=== PATIENT | female | born 1985 | race American Indian/Alaskan Native ===

== ENCOUNTER 2018-08-22 19:38 | Emergency (ER) | payer OTHER ==
[2018-08-22 20:14] VITALS: BP 146/111
--- NOTE | 2018-08-22 21:08 | Emergency Department Report ---
ED ENT HPI - General Chief complaint: Dental/Oral Stated complaint: TOOTHACHE Time Seen by Provider: 08/22/18 21:04 Source: patient Mode of arrival: Ambulatory Limitations: No Limitations - History of Present Illness Initial comments: 33 y/o female for 3 day history of dental pain. Taking Mortin and Tylenol. Admits to having a bad tooth in mouth. Pain in upper tooth. NKDA. PMH None. MD complaint: tooth pain -: days(s) (3) Location: tooth # Severity scale (0 -10): 10 Quality: aching, sharp Consistency: constant Improves with: none Worsens with: none Context- Dental: history of dental caries - Related Data Previous Rx's Medication Instructions Recorded Last Taken Type Amoxicillin [Trimox CAP] 500 mg PO Q8H #30 capsule 08/22/18 Unknown Rx Ibuprofen [Motrin 800 MG tab] 800 mg PO Q8HR PRN #30 tablet 08/22/18 Unknown Rx Allergies Allergy/AdvReac Type Severity Reaction Status Date / Time No Known Allergies Allergy Unverified 08/22/18 19:41 ED Dental HPI - General Chief complaint: Dental/Oral Stated complaint: TOOTHACHE Time Seen by Provider: 08/22/18 21:04 Source: patient Mode of arrival: Ambulatory Limitations: No Limitations - Related Data Previous Rx's Medication Instructions Recorded Last Taken Type Amoxicillin [Trimox CAP] 500 mg PO Q8H #30 capsule 08/22/18 Unknown Rx Ibuprofen [Motrin 800 MG tab] 800 mg PO Q8HR PRN #30 tablet 08/22/18 Unknown Rx Allergies Allergy/AdvReac Type Severity Reaction Status Date / Time No Known Allergies Allergy Unverified 08/22/18 19:41 ED Review of Systems ROS: Stated complaint: TOOTHACHE Other details as noted in HPI Comment: All other systems reviewed and negative Constitutional: no symptoms reported ENT: dental pain ED Past Medical Hx - Medications Home Medications: Home Medications Medication Instructions Recorded Confirmed Last Taken Type Amoxicillin [Trimox CAP] 500 mg PO Q8H #30 capsule 08/22/18 Unknown Rx Ibuprofen [Motrin 800 MG tab] 800 mg PO Q8HR PRN #30 tablet 08/22/18 Unknown Rx ED Physical Exam - General Limitations: No Limitations General appearance: alert - Head Head exam: Present: atraumatic, normocephalic - Eye Eye exam: Present: normal appearance, EOMI - ENT ENT exam: Present: mucous membranes moist - Expanded ENT Exam Expanded Teeth exam: Present: dental tenderness # (1) ED Course Vital Signs 08/22/18 20:12 Temperature 98.4 F Pulse Rate 64 Respiratory 20 Rate Blood Pressure 146/111 O2 Sat by Pulse 97 Oximetry Critical care attestation.: If time is entered above; I have spent that time in minutes in the direct care of this critically ill patient, excluding procedure time. ED Disposition Clinical Impression: Pain, dental Disposition: - TO HOME OR SELFCARE Is pt being admited?: No Does the pt Need Aspirin: No Condition: Stable Instructions: Toothache (ED) Additional Instructions: complete medication as prescribed . Follow up with a Dentist. Increase water intake. Prescriptions: Ibuprofen [Motrin 800 MG tab] 800 mg PO Q8HR PRN #30 tablet PRN Reason: Pain , Severe (7-10) Amoxicillin [Trimox CAP] 500 mg PO Q8H #30 capsule Referrals: [facility] [Outside] - 3-5 Days [facility] [Outside] - 3-5 Days [facility] [Outside] - 3-5 Days
== END 2018-08-22 21:28 | disposition home or self-care (01) ==
LOC: ED 19:38
DX: K08.89 Other specified disorders of teeth and supporting structures (principal)
CPT/HCPCS: 99282

== ENCOUNTER 2021-02-15 10:27 | Emergency (ER) | payer OTHER ==
[2021-02-15 10:33] VITALS: BP 168/86
[2021-02-15] MEDS ORDERED: SODIUM CHLORIDE 0.9% 1000 ML 1,000 ML IV ONE (10:41)
[2021-02-15] MEDS ORDERED: diphenhydrAMINE 50 MG/ML VIAL IV ONE (10:41)
[2021-02-15] MEDS ORDERED: METOCLOPRAMIDE 10 MG/2 ML INJ IV ONE (10:41)
--- NOTE | 2021-02-15 12:35 | Cat Scan Report ---
CT head/brain wo con INDICATION: headache without improved with OTC medications. TECHNIQUE: Routine CT head without contrast. All CT scans at this location are performed using CT dos e reduction for ALARA by means of automated exposure control. COMPARISON: None. FINDINGS: BRAIN / INTRACRANIAL CONTENTS: No acute hemorrhage, mass effect, midline shift, or hydrocephalus. No appreciable acute large territorial or lacunar infarct. No chronic infarct or focal atrophy. Normal b rain volume and ventricular/sulcal size for age. ORBITS: No significant abnormality of visualized orbits. SINUSES / MASTOIDS: No significant abnormality of visualized sinuses and mastoid air cells. ADDITIONAL FINDINGS: None. IMPRESSION: 1. No acute intracranial abnormality. Signer Name: Ovidio Farfan MD Signed: 02/15/2021 11:47 AM Workstation Name: [id number]
--- NOTE | 2021-02-15 13:05 | Emergency Department Report ---
ED Headache HPI - General Chief Complaint: Headache Stated Complaint: BAD HEADACHE Time Seen by Provider: 02/15/21 10:38 Source: patient, RN notes reviewed Exam Limitations: no limitations - History of Present Illness Initial Comments: This is a 35-year-old female nontoxic, well nourished in appearance, no acute signs of distress presents to the ED with c/o of acute on chronic headache. Patient stated symptoms are relieved with taking vezi-ivm-[id number] medication. Patient stated that this headache is slightly different from typical migraine headaches due to not being relief from adso-thq-wnopljs medication patient describes headache as diffuse with level of 8 out of 10. Patient denies thunderclap headache. Patient denies any radiation of pain. Patient denies any head trauma. Patient denies any visual changes. Patient denies worse headache. Patient stated that darkness makes headache better and bright lights make the headache worse. Patient denies any numbness, tingling, fever, chills, nausea, vomiting, chest pain, shortness of breath, stiff neck. Patient denies facial drooping or one sided weakness. Patient denies any radiation of pain. Patient denies any allergies. Past medical history includes migraine headaches. Timing/Duration: episodic Quality: achy Recent Head Trauma: occasional headaches Associated Symptoms: denies symptoms. denies: confusion, fatigue, facial pain, fever/chills, flushing, loss of consciousness, nausea/vomiting, nasal co ngestion, nasal drainage, numbness in legs/feet, rash, seizures, sinus infection, stiff neck, vision changes, weakness Allergies/Adverse Reactions: Allergies No Known Allergies Allergy (Verified 02/15/21 10:31) Home Medications: Ambulatory Orders Amoxicillin [Trimox CAP] 500 mg PO Q8H #30 capsule 08/22/18 Ibuprofen [Motrin 800 MG tab] 800 mg PO Q8HR PRN #30 tablet 08/22/18 Butalb/Acetaminophen/Caffeine [Fioricet 50-300-40 mg CAP] 1 cap PO Q8HR PRN #12 cap 02/15/21 ED Review of Systems ROS: Stated complaint: BAD HEADACHE Other details as noted in HPI Comment: All other systems reviewed and negative Constitutional: denies: chills, fever Eyes: denies: eye pain, eye discharge, vision change ENT: denies: ear pain, throat pain Respiratory: denies: cough, shortness of breath, wheezing Cardiovascular: denies: chest pain, palpitations Endocrine: no symptoms reported Gastrointestinal: denies: abdominal pain, nausea, diarrhea Genitourinary: denies: urgency, dysuria, discharge Musculoskeletal: denies: back pain, joint swelling, arthralgia Skin: denies: rash, lesions Neurological: headache. denies: weakness, paresthesias Psychiatric: denies: anxiety, depression Hematological/Lymphatic: denies: easy bleeding, easy bruising ED Past Medical Hx - Surgical History Additional Surgical History: C-sect x1 - Social History Smoking Status: Never Smoker Substance Use Type: None - Medications Home Medications: Home Medications Medication Instructions Recorded Confirmed Last Taken Type Amoxicillin [Trimox CAP] 500 mg PO Q8H #30 capsule 08/22/18 Unknown Rx Ibuprofen [Motrin 800 MG tab] 800 mg PO Q8HR PRN #30 tablet 08/22/18 Unknown Rx Butalb/Acetaminophen/Caffeine 1 cap PO Q8HR PRN #12 cap 02/15/21 Unknown Rx [Fioricet 50-300-40 mg CAP] ED Physical Exam - General Limitations: No Limitations General appearance: alert, in no apparent distress - Head Head exam: Present: atraumatic, normocephalic - Eye Eye exam: Present: normal appearance, PERRL, EOMI - ENT ENT exam: Present: normal exam, normal orophraynx - Neck Neck exam: Present: normal inspection, full ROM. Absent: tenderness, meningismus, lymphadenopathy - Respiratory Respiratory exam: Absent: respiratory distress - Cardiovascular Cardiovascular Exam: Present: regular rate - Extremities Exam Extremities exam: Present: normal inspection, full ROM, normal capillary refill. Absent: tenderness - Back Exam Back exam: Present: normal inspection, full ROM. Absent: tenderness, CVA tenderness (R), CVA tenderness (L), muscle spasm, paraspinal tenderness, vertebral tenderness, rash noted - Neurological Exam Neurological exam: Present: alert, oriented X3, normal gait - Expanded Neurological Exam Expanded Patient oriented to: Present: person, place, time Cranial nerves: EOM's Intact: Normal, Facial Sensation: Normal Cerebellar function: Finger to Nose: Normal Upper motor neuron: Pronator Drift: Normal, Sensory Extinction: Normal Motor strength exam: RUE: 5, LUE: 5, RLE: 5, LLE: 5 Best Eye Response ([place]): (4) open spontaneously Best Motor Response ([place]): (6) obeys commands Best Verbal Response ([place]): (5) oriented Sam Total: 15 - Psychiatric Psychiatric exam: Present: normal affect, normal mood - Skin Skin exam: Present: warm, dry, intact, normal color. Absent: rash ED Course Vital Signs 02/15/21 02/15/21 10:31 10:32 Temperature 98.7 F Pulse Rate 83 Respiratory 16 Rate Blood Pressure 168/86 [Right] O2 Sat by Pulse 96 Oximetry - Reevaluation(s) Reevaluation #1: 02/15/21 13:11 Patient is speaking in full sentences with no signs of distress noted. ED Medical Decision Making - Radiology Data CT head/brain wo con INDICATION: headache without improved with OTC medications. TECHNIQUE: Routine CT head without contrast. All CT scans at this location are performed using CT dose reduction for ALARA by means of automated exposure control. COMPARISON: None. FINDINGS: BRAIN / INTRACRANIAL CONTENTS: No acute hemorrhage, mass effect, midline shift, or hydrocephalus. No appreciable acute large territorial or lacunar infarct. No chronic infarct or focal atrophy. Normal brain volume and ventricular/sulcal size for age. ORBITS: No significant abnormality of visualized orbits. SINUSES / MASTOIDS: No significant abnormality of visualized sinuses and mastoid air cells. ADDITIONAL FINDINGS: None. IMPRESSION: 1. No acute intracranial abnormality. Signer Name: Ovidio Farfan MD Signed: 02/15/2021 10:47 AM Workstation Name: [id number] - Medical Decision Making This is a 35-year-old female that presents with headache. Patient is stable and was examined by me. Patient is neurologically stable. Due to symptoms of headache that is not relieved with tmtk-[id number]-csfcoww medication, CT scan has been performed and dictated by radiologist within normal limits. Patient is notified of the results with no questions noted by the patient. There is no stiff neck or neck pain. Vital signs are stable. Patient is afebrile. Patient received Benadryl, Reglan, and 1 L of normal saline which the patient stated that headache has subsided and resolved. Patient was instructed not to operate any machinery after discharged due to drowsiness of Benadryl. Patient stated th at a family member will drive patient home. Patient is discharged with Fioricet. Patient was referred to Follow-up with a primary care/neurologist doctor in 3-5 days or if symptoms worsen and continue return to emergency room as soon as possible. At time of discharge, the patient does not seem toxic or ill in appearance. No acute signs of distress noted. Patient agrees to discharge treatment plan of care. No further questions noted by the patient. Critical care attestation.: If time is entered above; I have spent that time in minutes in the direct care of this critically ill patient, excluding procedure time. ED Disposition Clinical Impression: Headache Qualifiers: Headache type: unspecified Headache chronicity pattern: episodic headache Intractability: not intractable Qualified Code(s): R51.9 - Headache, unspecified Disposition: 01 HOME / SELF CARE / HOMELESS Is pt being admited?: No Does the pt Need Aspirin: No Condition: Stable Instructions: Acetaminophen; Butalbital; Caffeine tablets or capsules Additional Instructions: Follow-up with a primary care doctor in 3-5 days or if symptoms worsen and continue return to emergency room as soon as possible. Prescriptions: Butalb/Acetaminophen/Caffeine [Fioricet 50-300-40 mg CAP] 1 cap PO Q8HR PRN #12 cap PRN Reason: Headache Referrals: PRIMARY MD JOHNNY [Referring] - 3-5 Days OSMEL JEAN MD [Staff Physician] - 3-5 Days Forms: Work/School Release Form(ED) Time of Disposition: 13:14
== END 2021-02-15 13:39 | disposition home or self-care (01) ==
LOC: ED 10:27
DX: R51.9 Headache, unspecified (principal); G89.29 Other chronic pain; Z98.890 Other specified postprocedural states
CPT/HCPCS: 70450; 96361; 96374; 96375; 99283; J1200; J2765; J7030

== ENCOUNTER 2021-07-11 14:14 | Inpatient (IN) | payer OTHER ==
[2021-07-11] MEDS ORDERED: ACETAMINOPHEN 325 MG TAB PO PRN (17:07)
[2021-07-11] MEDS ORDERED: ONDANSETRON 4 MG/2 ML INJ IV PRN (17:07)
[2021-07-11] MEDS ORDERED: diphenhydrAMINE 25 MG CAP PO PRN (17:07)
[2021-07-11] MEDS ORDERED: DOCUSATE SODIUM 100 MG CAP PO PRN (17:07)
[2021-07-11] MEDS ORDERED: SODIUM CHLORIDE NASAL SPRAY 44ML NS PRN (17:07)
[2021-07-11] MEDS ORDERED: LACTATED RINGERS 1,000 ML IV SCH ×2 (18:00→18:30)
[2021-07-11] MEDS ORDERED: hydrALAZINE 20 MG/1 ML INJ ONE (18:01)
[2021-07-11] MEDS ORDERED: hydrALAZINE 20 MG/1 ML INJ IV PRN (18:24)
--- NOTE | 2021-07-11 18:50 | Event Note ---
Date: 07/11/21 Pt was sent from [facility] for BP control, 24 hour urine collection, glucose monitoring and betamethasone administration. Hydralazine ordered around 1824pm. I called to follow up on BP and RN reports difficult to obtain IV access. Plan to consult anesthesia for IV access once available once ongoing section is completed. PO labetalol ordered to be administered now. Continue to monitor clinically. Plan to begin magnesium sulfate once IV access established. Closely monitor clinical status.
[2021-07-11] MEDS: BETAMET ACET/BETAMET NA PH 6 MG/ML INJ 5 ML MDV IM SCH (18:59)
[2021-07-11 19:51] LABS: Basophils % (Auto) 0.2 % (0.0-1.8); Eosinophils # (Auto) 0.1 K/mm3 (0.0-0.4); Eosinophils % (Auto) 0.6 % (0.0-4.3); Hematocrit 36.5 % (30.3-42.9); Hemoglobin 11.9 gm/dl (10.1-14.3); Lymphocytes # (Auto) 1.5 K/mm3 (1.2-5.4); Lymphocytes % (Auto) 15.3 % (13.4-35.0); Mean Corpuscular HGB Conc 33 % (30-34); Mean Corpuscular Volume 88 fl (79-97); Monocytes # (Auto) 0.5 K/mm3 (0.0-0.8); Monocytes % (Auto) 4.6 % (0.0-7.3); Platelet Count 313 K/mm3 (140-440); Red Blood Count 4.14 M/mm3 (3.65-5.03); Red Cell Distribution Width 15.3 % (13.2-15.2)
[2021-07-11] MEDS ORDERED: MAGNESIUM SULFATE 4 GM/100 ML BAG IV ONE (20:00)
[2021-07-11] MEDS ORDERED: CALCIUM GLUCONATE 1000 MG/10 ML INJ IV ONE (20:00)
[2021-07-11 20:05] LABS: Alanine Aminotransferase 10 units/L (7-56); Uric Acid 4.1 mg/dL (3.5-7.6)
[2021-07-11] MEDS: MAGNESIUM SULFATE 40GM/1000ML 40 GM/1,000 ML BAG IV SCH ×2 (20:50→21:02)
--- NOTE | 2021-07-11 21:36 | History and Physical Report ---
History of Present Illness Date of admission: 07/11/21 14:14 Chief complaint: sent from [facility] office for admission History of present illness: Pt is a 36 year old female FARIHA 08/09/21 at 35w6d presents for collection of 24 hour urine, serial BP measurements, betamethasone course, glucose monitoring and diabetic teaching from [facility] appt earlier today. She reports movement, and denies contractions, vaginal bleeding or leakage of fluid. She has had care at [facility] since 15 wks with comanagement by [facility] secondary to morbid obesity, gestational diabetes, h/o preeclampsia, gestational hypertension on labetalol 100 mg BID, genital herpes without lesion or prodrome, previous x 1, h/o 6 SVDs, trichomonas treated with negative test of cure. Her GBS status is unknown. The patient had an ultrasound today revealing a cephalic fetus, posterior grade 1 placenta, ROBERTO 19.37 cm, BPP 8/8 Past History Past Medical History: hypertension (gestational hypertension ), diabetes (gestational diabetes ), other (morbid obesity ) Past Surgical History: section, D[employer]C [employer] History: herpes Family/Genetic History: none Social history: no significant social history - Obstetrical History Expected Date of Delivery: 08/09/21 Actual Gestation: 35 Week(s) 6 Day(s) : 11 Para: 7 Hx # Term Pregnancies: 7 Number of Pregnancies: 0 Spontaneous Abortions: 0 Induced : 3 Number of Living Children: 7 Medications and Allergies Allergies Allergy/AdvReac Type Severity Reaction Status Date / Time No Known Allergies Allergy Verified 02/15/21 10:31 Home Medications Medication Instructions Recorded Confirmed Last Taken Type Amoxicillin [Trimox CAP] 500 mg PO Q8H #30 capsule 08/22/18 Unknown Rx Ibuprofen [Motrin 800 MG tab] 800 mg PO Q8HR PRN #30 tablet 08/22/18 Unknown Rx Butalb/Acetaminophen/Caffeine 1 cap PO Q8HR PRN #12 cap 02/15/21 Unknown Rx [Fioricet 50-300-40 mg CAP] Active Meds: Active Medications Acetaminophen (Acetaminophen 325 Mg Tab) 650 mg PO Q4H PRN PRN Reason: Pain MILD(1-3)/Fever >100.5/ENCINAS Betamethasone Acet/Betameth SodPhos (Betamet Acet/Betamet Na Ph 6 Mg/Ml Inj 5 Ml Mdv) 12 mg IM Q24H MORENO Stop: 07/12/21 18:01 Last Admin: 07/11/21 18:59 Dose: 12 mg Diphenhydramine HCl (Diphenhydramine 25 Mg Cap) 25 mg PO Q6H PRN PRN Reason: Itching Docusate Sodium (Docusate Sodium 100 Mg Cap) 100 mg PO Q12H PRN PRN Reason: Constipation Hydralazine HCl (Hydralazine 20 Mg/1 Ml Inj) 5 mg IV Q30MIN PRN PRN Reason: Hypertension Last Admin: 07/11/21 18:58 Dose: 5 mg Lactated Ringer's (Lactated Ringers) 1,000 mls @ 75 mls/hr IV DIRECT MORENO Last Admin: 07/11/21 19:59 Dose: 75 mls/hr Lactated Ringer's (Lactated Ringers) 1,000 mls @ 125 mls/hr IV DIRECT MORENO Magnesium Sulfate (Magnesium Sulfate 40gm/1000ml) 40 gm in 1,000 mls @ 50 mls/hr IV DIRECT MORENO Last Admin: 07/11/21 21:02 Dose: 2 gm/hr, 50 mls/hr Labetalol HCl (Labetalol 200 Mg Tab) 200 mg PO BID MORENO Last Admin: 07/11/21 18:59 Dose: 200 mg Multivitamins/Iron/Calcium ( [id number] Fumarate-Folic Acid Vit Tab) 1 each PO QDAY [facility] Ondansetron HCl (Ondansetron 4 Mg/2 Ml Inj) 4 mg IV Q6H PRN PRN Reason: Nausea And Vomiting Sodium Chloride (Sodium Chloride Nasal [place] 44ml) 2 spray NS Q4H PRN PRN Reason: Congestion Review of Systems All systems: negative - Vital Signs Vital signs: Vital Signs Pulse Pulse Ox 116 H 97 07/11/21 14:59 07/11/21 14:59 Temp Pulse Resp BP Pulse Ox 99.2 F 107 H 16 137/75 96 07/11/21 15:33 07/11/21 21:27 07/11/21 15:33 07/11/21 21:27 07/11/21 21:27 - Physical Exam Breasts: Positive: deferred Abdomen: Positive: soft (obese, gravid ) Uterus: Positive: enlarged (gravid) - Obstetrical FHR: auscultation normal Uterine Contraction Monitor Mode: External Uterine Contraction Pattern: Irregular Uterine Tone Measurement Phase: Resting Results Result Diagrams: 07/11/21 18:25 07/11/21 18:25 Abnormal lab results 07/11/21 Range/Units 18:25 RDW 15.3 H (13.2-15.2) % Seg Neutrophils % 79.3 H (40.0-70.0) % Seg Neutrophils # 7.9 H (1.8-7.7) K/mm3 All other labs normal. Assessment and Plan A: IUP at 35w6d Gestational Hypertension on Labetalol 100 mg BID Gestational Diabetes Morbid Obesity Previous x 1 Grandmultiparity H/o preeclampsia in prior Genital Herpes Trichomonas treated with negative test of cure GBS unknown p: Admit to antepartum service Serial BPs with change in antihypertensive regimen PRN Accuchecks- fasting and 2 hour postprandials Betamethasone series PIH panel 24 hour urine collection Continue to monitor clinical status
[2021-07-11] MEDS ORDERED: INSULIN REGULAR, HUMAN 100 UNITS/1 ML SUB-Q PRN (21:47)
[2021-07-11] MEDS ORDERED: DEXTROSE 10% *Hypoglycemia IV PRN (21:51)
[2021-07-12 09:09] LABS: Mucus,Urine FEW /HPF
[2021-07-12 09:47] LABS: Bilirubin,Urine Negative (Negative); Color,Urine Straw (Yellow)
[2021-07-12 09:48] LABS: Blood,Urine Trace (Negative); Protein,Urine <15 mg/dL mg/dL (Negative); Urobilinogen,Urine < 2.0 mg/dL (<2.0)
[2021-07-12] MEDS: valACYclovir 500 MG TAB PO SCH (10:06)
[2021-07-12] MEDS: PRENATAL VIT27-FE FUMARATE-FOLIC ACID VIT TAB PO SCH (10:07)
--- NOTE | 2021-07-12 13:23 | Progress Note ---
Assessment and Plan - Patient Problems (1) induced hypertension Current Visit: Yes Status: Acute Plan to address problem: Complete betamethasone therapy Completion of 24-hour urine pending this afternoon (2) Diabetes mellitus affecting Current Visit: Yes Status: Acute Subjective - Subjective Date of service: 07/12/21 Interval history: The patient is currently without complaints. She is refused Covid testing. The importance of knowing her Covid status was explained to the patient. The patient is undergoing treatment with betamethasone and magnesium sulfate therapy. Patient demonstrating normotensive blood pressures on bedrest. Currently awaiting completion of 24-hour urine collection Patient reports: no new complaints Objective - Vital Signs Vital Signs: Vital Signs - 12hr 07/12/21 07/12/21 07/12/21 01:22 01:27 01:32 Temperature Pulse Rate 117 H 115 H 113 H Respiratory Rate Blood Pressure 143/84 Blood Pressure [Right] O2 Sat by Pulse 96 97 96 Oximetry O2 Sat by Pulse Oximetry [ Bilateral Throughout] 07/12/21 07/12/21 07/12/21 01:37 01:42 01:47 Temperature Pulse Rate 111 H 112 H 114 H Respiratory Rate Blood Pressure Blood Pressure [Right] O2 Sat by Pulse 96 97 97 Oximetry O2 Sat by Pulse Oximetry [ Bilateral Throughout] 07/12/21 07/12/21 07/12/21 01:52 01:57 02:02 Temperature Pulse Rate 106 H 113 H 111 H Respiratory Rate Blood Pressure 145/83 Blood Pressure [Right] O2 Sat by Pulse 97 97 96 Oximetry O2 Sat by Pulse Oximetry [ Bilateral Throughout] 07/12/21 07/12/21 07/12/21 02:07 02:12 02:17 Temperature Pulse Rate 111 H 111 H 109 H Respiratory Rate Blood Pressure Blood Pressure [Right] O2 Sat by Pulse 97 95 96 Oximetry O2 Sat by Pulse Oximetry [ Bilateral Throughout] 07/12/21 07/12/21 07/12/21 02:21 02:22 02:26 Temperature Pulse Rate 112 H 107 H 105 H Respiratory Rate Blood Pressure Blood Pressure [Right] O2 Sat by Pulse 94 95 94 Oximetry O2 Sat by Pulse Oximetry [ Bilateral Throughout] 07/12/21 07/12/21 07/12/21 02:27 02:32 02:37 Temperature Pulse Rate 122 H 109 H 114 H Respiratory Rate Blood Pressure 132/68 Blood Pressure [Right] O2 Sat by Pulse 97 97 96 Oximetry O2 Sat by Pulse Oximetry [ Bilateral Throughout] 07/12/21 07/12/21 07/12/21 02:42 02:47 02:52 Temperature Pulse Rate 111 H 111 H 109 H Respiratory Rate Blood Pressure Blood Pressure [Right] O2 Sat by Pulse 96 97 97 Oximetry O2 Sat by Pulse Oximetry [ Bilateral Throughout] 07/12/21 07/12/21 07/12/21 02:57 02:58 03:02 Temperature Pulse Rate 107 H 110 H 112 H Respiratory Rate Blood Pressure 136/75 Blood Pressure [Right] O2 Sat by Pulse 98 97 Oximetry O2 Sat by Pulse Oximetry [ Bilateral Throughout] 07/12/21 07/12/21 07/12/21 03:07 03:12 03:17 Temperature Pulse Rate 108 H 109 H 108 H Respiratory Rate Blood Pressure Blood Pressure [Right] O2 Sat by Pulse 98 98 97 Oximetry O2 Sat by Pulse Oximetry [ Bilateral Throughout] 07/12/21 07/12/21 07/12/21 03:22 03:27 03:32 Temperature Pulse Rate 104 H 113 H 107 H Respiratory Rate Blood Pressure 138/74 Blood Pressure [Right] O2 Sat by Pulse 97 97 97 Oximetry O2 Sat by Pulse Oximetry [ Bilateral Throughout] 07/12/21 07/12/21 07/12/21 03:37 03:42 03:47 Temperature Pulse Rate 105 H 103 H 112 H Respiratory Rate Blood Pressure Blood Pressure [Right] O2 Sat by Pulse 97 97 98 Oximetry O2 Sat by Pulse Oximetry [ Bilateral Throughout] 07/12/21 07/12/21 07/12/21 03:52 03:57 04:02 Temperature Pulse Rate 111 H 109 H 108 H Respiratory Rate Blood Pressure 128/65 Blood Pressure [Right] O2 Sat by Pulse 97 97 97 Oximetry O2 Sat by Pulse Oximetry [ Bilateral Throughout] 07/12/21 07/12/21 07/12/21 04:07 04:12 04:17 Temperature Pulse Rate 105 H 110 H 101 H Respiratory Rate Blood Pressure Blood Pressure [Right] O2 Sat by Pulse 97 96 97 Oximetry O2 Sat by Pulse Oximetry [ Bilateral Throughout] 07/12/21 07/12/21 07/12/21 04:22 04:27 04:32 Temperature Pulse Rate 102 H 106 H 106 H Respiratory Rate Blood Pressure 135/77 Blood Pressure [Right] O2 Sat by Pulse 96 96 96 Oximetry O2 Sat by Pulse Oximetry [ Bilateral Throughout] 07/12/21 07/12/21 07/12/21 04:37 04:39 04:42 Temperature Pulse Rate 103 H 103 H 100 H Respiratory Rate Blood Pressure Blood Pressure [Right] O2 Sat by Pulse 96 94 95 Oximetry O2 Sat by Pulse Oximetry [ Bilateral Throughout] 07/12/21 07/12/21 07/12/21 04:46 04:47 04:52 Temperature Pulse Rate 105 H 102 H 102 H Respiratory Rate Blood Pressure Blood Pressure [Right] O2 Sat by Pulse 93 95 95 Oximetry O2 Sat by Pulse Oximetry [ Bilateral Throughout] 07/12/21 07/12/21 07/12/21 04:56 04:57 05:02 Temperature Pulse Rate 100 H 107 H 111 H Respiratory Rate Blood Pressure 133/72 Blood Pressure [Right] O2 Sat by Pulse 94 93 96 Oximetry O2 Sat by Pulse Oximetry [ Bilateral Throughout] 07/12/21 07/12/21 07/12/21 05:07 05:12 05:17 Temperature Pulse Rate 107 H 119 H 107 H Respiratory Rate Blood Pressure Blood Pressure [Right] O2 Sat by Pulse 96 97 98 Oximetry O2 Sat by Pulse Oximetry [ Bilateral Throughout] 07/12/21 07/12/21 07/12/21 05:22 05:27 05:28 Temperature Pulse Rate 107 H 102 H 111 H Respiratory Rate Blood Pressure 132/74 Blood Pressure [Right] O2 Sat by Pulse 97 98 Oximetry O2 Sat by Pulse Oximetry [ Bilateral Throughout] 07/12/21 07/12/21 07/12/21 05:32 05:37 05:41 Temperature 98.8 F Pulse Rate 108 H 105 H Respiratory Rate Blood Pressure Blood Pressure [Right] O2 Sat by Pulse 96 98 Oximetry O2 Sat by Pulse Oximetry [ Bilateral Throughout] 07/12/21 07/12/21 07/12/21 05:42 05:47 05:52 Temperature Pulse Rate 100 H 103 H 105 H Respiratory Rate Blood Pressure Blood Pressure [Right] O2 Sat by Pulse 97 97 97 Oximetry O2 Sat by Pulse Oximetry [ Bilateral Throughout] 07/12/21 07/12/21 07/12/21 05:57 06:02 06:07 Temperature Pulse Rate 101 H 109 H 100 H Respiratory Rate Blood Pressure 137/80 Blood Pressure [Right] O2 Sat by Pulse 97 97 97 Oximetry O2 Sat by Pulse Oximetry [ Bilateral Throughout] 07/12/21 07/12/21 07/12/21 06:12 06:17 06:22 Temperature Pulse Rate 105 H 103 H 102 H Respiratory Rate Blood Pressure Blood Pressure [Right] O2 Sat by Pulse 96 96 94 Oximetry O2 Sat by Pulse Oximetry [ Bilateral Throughout] 07/12/21 07/12/21 07/12/21 06:27 06:29 06:32 Temperature Pulse Rate 104 H 108 H 108 H Respiratory Rate Blood Pressure 125/68 Blood Pressure [Right] O2 Sat by Pulse 96 97 Oximetry O2 Sat by Pulse Oximetry [ Bilateral Throughout] 07/12/21 07/12/21 07/12/21 06:37 06:42 06:47 Temperature Pulse Rate 108 H 111 H 118 H Respiratory Rate Blood Pressure Blood Pressure [Right] O2 Sat by Pulse 98 98 97 Oximetry O2 Sat by Pulse Oximetry [ Bilateral Throughout] 07/12/21 07/12/21 07/12/21 06:52 06:57 07:01 Temperature Pulse Rate 111 H 107 H 105 H Respiratory Rate Blood Pressure 139/81 Blood Pressure [Right] O2 Sat by Pulse 96 98 94 Oximetry O2 Sat by Pulse Oximetry [ Bilateral Throughout] 07/12/21 07/12/21 07/12/21 07:02 07:07 07:12 Temperature Pulse Rate 105 H 104 H 104 H Respiratory Rate Blood Pressure Blood Pressure [Right] O2 Sat by Pulse 95 95 94 Oximetry O2 Sat by Pulse Oximetry [ Bilateral Throughout] 07/12/21 07/12/21 07/12/21 07:17 07:22 07:26 Temperature Pulse Rate 101 H 111 H 108 H Respiratory Rate Blood Pressure Blood Pressure [Right] O2 Sat by Pulse 95 94 94 Oximetry O2 Sat by Pulse Oximetry [ Bilateral Throughout] 07/12/21 07/12/21 07/12/21 07:27 07:31 07:32 Temperature Pulse Rate 102 H 99 H 106 H Respiratory Rate Blood Pressure Blood Pressure [Right] O2 Sat by Pulse 97 93 95 Oximetry O2 Sat by Pulse Oximetry [ Bilateral Throughout] 07/12/21 07/12/21 07/12/21 07:36 07:37 07:42 Temperature Pulse Rate 100 H 100 H 100 H Respiratory Rate Blood Pressure Blood Pressure [Right] O2 Sat by Pulse 94 94 93 Oximetry O2 Sat by Pulse Oximetry [ Bilateral Throughout] 07/12/21 07/12/21 07/12/21 07:44 07:47 07:49 Temperature Pulse Rate 100 H 100 H 100 H Respiratory Rate Blood Pressure Blood Pressure [Right] O2 Sat by Pulse 94 93 94 Oximetry O2 Sat by Pulse Oximetry [ Bilateral Throughout] 07/12/21 07/12/21 07/12/21 07:52 07:57 08:02 Temperature Pulse Rate 113 H 107 H 106 H Respiratory Rate Blood Pressure 135/79 Blood Pressure [Right] O2 Sat by Pulse 98 96 95 Oximetry O2 Sat by Pulse Oximetry [ Bilateral Throughout] 07/12/21 07/12/21 07/12/21 08:07 08:12 08:17 Temperature Pulse Rate 112 H 117 H 122 H Respiratory Rate Blood Pressure Blood Pressure [Right] O2 Sat by Pulse 97 97 96 Oximetry O2 Sat by Pulse Oximetry [ Bilateral Throughout] 07/12/21 07/12/21 07/12/21 08:20 08:21 08:22 Temperature 98.0 F Pulse Rate 106 H 110 H 108 H Respiratory 22 Rate Blood Pressure 128/71 Blood Pressure 128/71 [Right] O2 Sat by Pulse 96 97 Oximetry O2 Sat by Pulse Oximetry [ Bilateral Throughout] 07/12/21 07/12/21 07/12/21 08:24 08:27 08:32 Temperature Pulse Rate 108 H 107 H Respiratory Rate Blood Pressure 131/72 Blood Pressure [Right] O2 Sat by Pulse 95 95 Oximetry O2 Sat by Pulse 96 Oximetry [ Bilateral Throughout] 07/12/21 07/12/21 07/12/21 08:37 08:42 08:47 Temperature Pulse Rate 112 H 114 H 110 H Respiratory Rate Blood Pressure Blood Pressure [Right] O2 Sat by Pulse 97 97 97 Oximetry O2 Sat by Pulse Oximetry [ Bilateral Throughout] 07/12/21 07/12/21 07/12/21 08:52 08:57 08:58 Temperature Pulse Rate 106 H 104 H 105 H Respiratory Rate Blood Pressure 117/65 Blood Pressure [Right] O2 Sat by Pulse 96 96 Oximetry O2 Sat by Pulse Oximetry [ Bilateral Throughout] 07/12/21 07/12/21 07/12/21 09:02 09:07 09:12 Temperature Pulse Rate 120 H 120 H 110 H Respiratory Rate Blood Pressure Blood Pressure [Right] O2 Sat by Pulse 97 98 96 Oximetry O2 Sat by Pulse Oximetry [ Bilateral Throughout] 07/12/21 07/12/21 07/12/21 09:17 09:22 09:27 Temperature Pulse Rate 115 H 110 H 110 H Respiratory Rate Blood Pressure 126/65 Blood Pressure [Right] O2 Sat by Pulse 96 98 98 Oximetry O2 Sat by Pulse Oximetry [ Bilateral Throughout] 07/12/21 07/12/21 07/12/21 09:32 09:37 09:42 Temperature Pulse Rate 103 H 105 H 110 H Respiratory Rate Blood Pressure Blood Pressure [Right] O2 Sat by Pulse 97 98 98 Oximetry O2 Sat by Pulse Oximetry [ Bilateral Throughout] 07/12/21 07/12/21 07/12/21 09:47 09:52 09:57 Temperature Pulse Rate 103 H 108 H 103 H Respiratory Rate Blood Pressure Blood Pressure [Right] O2 Sat by Pulse 99 99 97 Oximetry O2 Sat by Pulse Oximetry [ Bilateral Throughout] 07/12/21 07/12/21 07/12/21 09:58 10:02 10:07 Temperature Pulse Rate 104 H 106 H 109 H Respiratory Rate Blood Pressure 127/66 149/82 Blood Pressure [Right] O2 Sat by Pulse 97 97 Oximetry O2 Sat by Pulse Oximetry [ Bilateral Throughout] 07/12/21 07/12/21 07/12/21 10:11 10:13 10:17 Temperature Pulse Rate 112 H 116 H 114 H Respiratory Rate Blood Pressure 149/82 Blood Pressure [Right] O2 Sat by Pulse 99 98 Oximetry O2 Sat by Pulse Oximetry [ Bilateral Throughout] 07/12/21 07/12/21 07/12/21 10:23 10:27 10:28 Temperature Pulse Rate 106 H 106 H 109 H Respiratory Rate Blood Pressure 120/57 Blood Pressure [Right] O2 Sat by Pulse 97 98 Oximetry O2 Sat by Pulse Oximetry [ Bilateral Throughout] 07/12/21 07/12/21 07/12/21 10:32 10:38 10:40 Temperature Pulse Rate 109 H 104 H 104 H Respiratory Rate Blood Pressure Blood Pressure [Right] O2 Sat by Pulse 96 95 94 Oximetry O2 Sat by Pulse Oximetry [ Bilateral Throughout] 07/12/21 07/12/21 07/12/21 10:42 10:47 10:53 Temperature Pulse Rate 109 H 118 H 104 H Respiratory Rate Blood Pressure Blood Pressure [Right] O2 Sat by Pulse 95 97 97 Oximetry O2 Sat by Pulse Oximetry [ Bilateral Throughout] 07/12/21 07/12/21 07/12/21 10:57 11:00 11:03 Temperature Pulse Rate 106 H 108 H 108 H Respiratory Rate Blood Pressure 130/71 Blood Pressure [Right] O2 Sat by Pulse 95 94 95 Oximetry O2 Sat by Pulse Oximetry [ Bilateral Throughout] 07/12/21 07/12/21 07/12/21 11:06 11:07 11:13 Temperature Pulse Rate 104 H 110 H 103 H Respiratory Rate Blood Pressure Blood Pressure [Right] O2 Sat by Pulse 94 93 93 Oximetry O2 Sat by Pulse Oximetry [ Bilateral Throughout] 07/12/21 07/12/21 07/12/21 11:18 11:22 11:27 Temperature Pulse Rate 99 H 113 H 101 H Respiratory Rate Blood Pressure 115/56 Blood Pressure [Right] O2 Sat by Pulse 93 97 94 Oximetry O2 Sat by Pulse Oximetry [ Bilateral Throughout] 07/12/21 07/12/21 07/12/21 11:28 11:32 11:38 Temperature Pulse Rate 102 H 104 H 105 H Respiratory Rate Blood Pressure Blood Pressure [Right] O2 Sat by Pulse 94 94 92 Oximetry O2 Sat by Pulse Oximetry [ Bilateral Throughout] 07/12/21 07/12/21 07/12/21 11:41 11:43 11:48 Temperature Pulse Rate 101 H 100 H 98 H Respiratory Rate Blood Pressure Blood Pressure [Right] O2 Sat by Pulse 94 93 94 Oximetry O2 Sat by Pulse Oximetry [ Bilateral Throughout] 07/12/21 07/12/21 07/12/21 11:53 11:57 11:58 Temperature Pulse Rate 109 H 113 H 114 H Respiratory Rate Blood Pressure 132/73 Blood Pressure [Right] O2 Sat by Pulse 97 97 Oximetry O2 Sat by Pulse Oximetry [ Bilateral Throughout] 07/12/21 07/12/21 07/12/21 12:03 12:07 12:12 Temperature Pulse Rate 108 H 106 H 104 H Respiratory Rate Blood Pressure Blood Pressure [Right] O2 Sat by Pulse 94 94 94 Oximetry O2 Sat by Pulse Oximetry [ Bilateral Throughout] 07/12/21 07/12/21 07/12/21 12:13 12:18 12:23 Temperature Pulse Rate 103 H 104 H 105 H Respiratory Rate Blood Pressure Blood Pressure [Right] O2 Sat by Pulse 95 94 95 Oximetry O2 Sat by Pulse Oximetry [ Bilateral Throughout] 07/12/21 07/12/21 07/12/21 12:26 12:27 12:28 Temperature Pulse Rate 101 H 106 H 107 H Respiratory Rate Blood Pressure 115/59 Blood Pressure [Right] O2 Sat by Pulse 94 96 Oximetry O2 Sat by Pulse Oximetry [ Bilateral Throughout] 07/12/21 07/12/21 07/12/21 12:32 12:37 12:43 Temperature Pulse Rate 102 H 99 H 106 H Respiratory Rate Blood Pressure Blood Pressure [Right] O2 Sat by Pulse 97 96 96 Oximetry O2 Sat by Pulse Oximetry [ Bilateral Throughout] 07/12/21 07/12/21 07/12/21 12:48 12:52 12:57 Temperature Pulse Rate 103 H 98 H 102 H Respiratory Rate Blood Pressure Blood Pressure [Right] O2 Sat by Pulse 95 97 95 Oximetry O2 Sat by Pulse Oximetry [ Bilateral Throughout] 07/12/21 07/12/21 07/12/21 12:58 13:03 13:07 Temperature Pulse Rate 103 H 107 H 110 H Respiratory Rate Blood Pressure 113/52 Blood Pressure [Right] O2 Sat by Pulse 96 98 Oximetry O2 Sat by Pulse Oximetry [ Bilateral Throughout] 07/12/21 07/12/21 13:12 13:17 Temperature Pulse Rate 103 H 104 H Respiratory Rate Blood Pressure Blood Pressure [Right] O2 Sat by Pulse 97 97 Oximetry O2 Sat by Pulse Oximetry [ Bilateral Throughout] - Labs Labs: Abnormal Labs 07/11/21 07/11/21 07/12/21 18:25 22:28 05:13 RDW 15.3 H Seg Neutrophils % 79.3 H Seg Neutrophils # 7.9 H POC Glucose 127 H Magnesium 3.50 H 07/12/21 07:26 RDW Seg Neutrophils % Seg Neutrophils # POC Glucose Magnesium 4.20 H Laboratory Results - last 24 hr 07/11/21 07/11/21 07/11/21 18:25 18:25 18:25 WBC 9.9 RBC 4.14 Hgb 11.9 Hct 36.5 MCV 88 MCH 29 MCHC 33 RDW 15.3 H Plt Count 313 Lymph % (Auto) 15.3 Barry % (Auto) 4.6 Eos % (Auto) 0.6 Baso % (Auto) 0.2 Lymph # (Auto) 1.5 Barry # (Auto) 0.5 Eos # (Auto) 0.1 Baso # (Auto) 0.0 Seg Neutrophils % 79.3 H Seg Neutrophils # 7.9 H Creatinine 0.6 Estimated GFR > 60 POC Glucose Uric Acid 4.1 Magnesium AST 35 ALT 10 Urine Color Urine Turbidity Urine pH Ur Specific [place] Urine Protein Urine Glucose (UA) Urine Ketones Urine Blood Urine Nitrite Ur Reducing Substances Urine Bilirubin Urine Ictotest Urine Urobilinogen Ur Leukocyte Esterase Urine WBC (Auto) Urine RBC (Auto) U Epithel Cells (Auto) Urine Mucus Blood Type O POSITIVE Antibody Screen Negative 07/11/21 07/12/21 07/12/21 22:28 05:13 07:26 WBC RBC Hgb Hct MCV MCH MCHC RDW Plt Count Lymph % (Auto) [place] % (Auto) Eos % (Auto) Baso % (Auto) Lymph # (Auto) [place] # (Auto) Eos # (Auto) Baso # (Auto) Seg Neutrophils % Seg Neutrophils # Creatinine Estimated GFR POC Glucose 127 H Uric Acid Magnesium 3.50 H 4.20 H AST ALT Urine Color Urine Turbidity Urine pH Ur Specific [place] Urine Protein Urine Glucose (UA) Urine Ketones Urine Blood Urine Nitrite Ur Reducing Substances Urine Bilirubin Urine Ictotest Urine Urobilinogen Ur Leukocyte Esterase Urine WBC (Auto) Urine RBC (Auto) U Epithel Cells (Auto) Urine Mucus Blood Type Antibody Screen 07/12/21 08:35 WBC RBC Hgb Hct MCV MCH MCHC RDW Plt Count Lymph % (Auto) [place] % (Auto) Eos % (Auto) Baso % (Auto) Lymph # (Auto) [place] # (Auto) Eos # (Auto) Baso # (Auto) Seg Neutrophils % Seg Neutrophils # Creatinine Estimated GFR POC Glucose Uric Acid Magnesium AST ALT Urine Color Straw Urine Turbidity Clear Urine pH 5.0 Ur Specific [place] 1.020 Urine Protein <15 mg/dl Urine Glucose (UA) Negative Urine Ketones Trace Urine Blood Trace Urine Nitrite Negative Ur Reducing Substances Not Reportable Urine Bilirubin Negative Urine Ictotest Not Reportable Urine Urobilinogen < 2.0 Ur Leukocyte Esterase Small Urine WBC (Auto) 3.0 Urine RBC (Auto) 28.0 U Epithel Cells (Auto) 1.0 Urine Mucus Few Blood Type Antibody Screen
--- NOTE | 2021-07-12 14:04 | Progress Note ---
Assessment and Plan IMPRESSION: 1. SIUP@ 35.4 weeks gestation 2. 07/11/2021 Most recent EFW consistent for EGA @ 40%tile ( with [facility] on 06/22/2021) 3. 07/11/2021 Most recent Reassuring behavior, BPP 11/28 4. 07/11/2021 Appropriate ROBERTO 5. No evidence of uteroplacental insufficiency 6. Morbid obesity 7. GHTN -improved , stable BPs of 120-130's /70-80's under her current therapy of Labetalol and bedrest - No CHEMISTRY MANAGER features -PIH workup in progress 8. Hx of HTN in prior pregnancies, requiring medication management 9. Reports prior PTD before 37 weeks secondary to elevated b/p 10. Prior c/s x 1 11. Multigravida. 12. GDM 13 BMZ in progress for FLM and MgSO4 in progress RECOMMENDATIONS: Remain in patient with continuous EFM pending 24 hr urine and BP - baseline PIH/24 hr urine protein labs - perform HgA1c and fructosamine - fasting and 2 hr Postprandial accuchecks - IV/PO antihypertensive agent as appropriate - Adjust PO antihypertensive medication as indicated (currently managed on labetalol 100mg BID) - Continue Magnesium sulfate infusion as indicated With continued stable BP's no CHEMISTRY MANAGER features and normal 24 hr urine consider discharge with twice a week APA follow up Document current HgbA1C NICU consult For diagnosis of PreE (mild ) without severe range, delivery recommended at 37 weeks - per pt, scheduled for repeat delivery on 07/27/2021 Contraindication to continued expectant management, in which delivery is indicated, include the followin. -Cerbrovascular disturbances unresponsive to medical management 2. -Unrelenting right upper quadrant pain 3. -Liver function tests greater than 2x the upper limit of normal 4. -Thrombocytopenia <100,000/microL 5. -Creatinine greater than 1.1 mg/dL 6. -Eclampsia 7. -Pulmonary edema 8. -Hypertension requiring initiation of fast upward titration of oral agents or multiple pushes of IV anti-hypetensives unresponsive to therapy Subjective - Subjective Date of service: 07/12/21 ([id number]) Patient reports: movement normal, other (denies sxs of PreE), no new complaints, no loss of fluid, no vaginal bleeding, no contractions Objective - Vital Signs Vital Signs: Vital Signs - 12hr 07/12/21 07/12/21 07/12/21 02:07 02:12 02:17 Temperature Pulse Rate 111 H 111 H 109 H Respiratory Rate Blood Pressure Blood Pressure [Right] O2 Sat by Pulse 97 95 96 Oximetry O2 Sat by Pulse Oximetry [ Bilateral Throughout] 07/12/21 07/12/21 07/12/21 02:21 02:22 02:26 Temperature Pulse Rate 112 H 107 H 105 H Respiratory Rate Blood Pressure Blood Pressure [Right] O2 Sat by Pulse 94 95 94 Oximetry O2 Sat by Pulse Oximetry [ Bilateral Throughout] 07/12/21 07/12/21 07/12/21 02:27 02:32 02:37 Temperature Pulse Rate 122 H 109 H 114 H Respiratory Rate Blood Pressure 132/68 Blood Pressure [Right] O2 Sat by Pulse 97 97 96 Oximetry O2 Sat by Pulse Oximetry [ Bilateral Throughout] 07/12/21 07/12/21 07/12/21 02:42 02:47 02:52 Temperature Pulse Rate 111 H 111 H 109 H Respiratory Rate Blood Pressure Blood Pressure [Right] O2 Sat by Pulse 96 97 97 Oximetry O2 Sat by Pulse Oximetry [ Bilateral Throughout] 07/12/21 07/12/21 07/12/21 02:57 02:58 03:02 Temperature Pulse Rate 107 H 110 H 112 H Respiratory Rate Blood Pressure 136/75 Blood Pressure [Right] O2 Sat by Pulse 98 97 Oximetry O2 Sat by Pulse Oximetry [ Bilateral Throughout] 07/12/21 07/12/21 07/12/21 03:07 03:12 03:17 Temperature Pulse Rate 108 H 109 H 108 H Respiratory Rate Blood Pressure Blood Pressure [Right] O2 Sat by Pulse 98 98 97 Oximetry O2 Sat by Pulse Oximetry [ Bilateral Throughout] 07/12/21 07/12/21 07/12/21 03:22 03:27 03:32 Temperature Pulse Rate 104 H 113 H 107 H Respiratory Rate Blood Pressure 138/74 Blood Pressure [Right] O2 Sat by Pulse 97 97 97 Oximetry O2 Sat by Pulse Oximetry [ Bilateral Throughout] 07/12/21 07/12/21 07/12/21 03:37 03:42 03:47 Temperature Pulse Rate 105 H 103 H 112 H Respiratory Rate Blood Pressure Blood Pressure [Right] O2 Sat by Pulse 97 97 98 Oximetry O2 Sat by Pulse Oximetry [ Bilateral Throughout] 0307/12/21 07/12/21 03:52 03:57 04:02 Temperature Pulse Rate 111 H 109 H 108 H Respiratory Rate Blood Pressure 128/65 Blood Pressure [Right] O2 Sat by Pulse 97 97 97 Oximetry O2 Sat by Pulse Oximetry [ Bilateral Throughout] 07/12/21 07/12/21 07/12/21 04:07 04:12 04:17 Temperature Pulse Rate 105 H 110 H 101 H Respiratory Rate Blood Pressure Blood Pressure [Right] O2 Sat by Pulse 97 96 97 Oximetry O2 Sat by Pulse Oximetry [ Bilateral Throughout] 07/12/21 07/12/21 07/12/21 04:22 04:27 04:32 Temperature Pulse Rate 102 H 106 H 106 H Respiratory Rate Blood Pressure 135/77 Blood Pressure [Right] O2 Sat by Pulse 96 96 96 Oximetry O2 Sat by Pulse Oximetry [ Bilateral Throughout] 07/12/21 07/12/21 07/12/21 04:37 04:39 04:42 Temperature Pulse Rate 103 H 103 H 100 H Respiratory Rate Blood Pressure Blood Pressure [Right] O2 Sat by Pulse 96 94 95 Oximetry O2 Sat by Pulse Oximetry [ Bilateral Throughout] 07/12/21 07/12/21 07/12/21 04:46 04:47 04:52 Temperature Pulse Rate 105 H 102 H 102 H Respiratory Rate Blood Pressure Blood Pressure [Right] O2 Sat by Pulse 93 95 95 Oximetry O2 Sat by Pulse Oximetry [ Bilateral Throughout] 07/12/21 07/12/21 07/12/21 04:56 04:57 05:02 Temperature Pulse Rate 100 H 107 H 111 H Respiratory Rate Blood Pressure 133/72 Blood Pressure [Right] O2 Sat by Pulse 94 93 96 Oximetry O2 Sat by Pulse Oximetry [ Bilateral Throughout] 07/12/21 07/12/21 07/12/21 05:07 05:12 05:17 Temperature Pulse Rate 107 H 119 H 107 H Respiratory Rate Blood Pressure Blood Pressure [Right] O2 Sat by Pulse 96 97 98 Oximetry O2 Sat by Pulse Oximetry [ Bilateral Throughout] 07/12/21 07/12/21 07/12/21 05:22 05:27 05:28 Temperature Pulse Rate 107 H 102 H 111 H Respiratory Rate Blood Pressure 132/74 Blood Pressure [Right] O2 Sat by Pulse 97 98 Oximetry O2 Sat by Pulse Oximetry [ Bilateral Throughout] 03/07/12/21 07/12/21 05:32 05:37 05:41 Temperature 98.8 F Pulse Rate 108 H 105 H Respiratory Rate Blood Pressure Blood Pressure [Right] O2 Sat by Pulse 96 98 Oximetry O2 Sat by Pulse Oximetry [ Bilateral Throughout] 07/12/21 07/12/21 07/12/21 05:42 05:47 05:52 Temperature Pulse Rate 100 H 103 H 105 H Respiratory Rate Blood Pressure Blood Pressure [Right] O2 Sat by Pulse 97 97 97 Oximetry O2 Sat by Pulse Oximetry [ Bilateral Throughout] 07/12/21 07/12/21 07/12/21 05:57 06:02 06:07 Temperature Pulse Rate 101 H 109 H 100 H Respiratory Rate Blood Pressure 137/80 Blood Pressure [Right] O2 Sat by Pulse 97 97 97 Oximetry O2 Sat by Pulse Oximetry [ Bilateral Throughout] 07/12/21 07/12/21 07/12/21 06:12 06:17 06:22 Temperature Pulse Rate 105 H 103 H 102 H Respiratory Rate Blood Pressure Blood Pressure [Right] O2 Sat by Pulse 96 96 94 Oximetry O2 Sat by Pulse Oximetry [ Bilateral Throughout] 07/12/21 07/12/21 07/12/21 06:27 06:29 06:32 Temperature Pulse Rate 104 H 108 H 108 H Respiratory Rate Blood Pressure 125/68 Blood Pressure [Right] O2 Sat by Pulse 96 97 Oximetry O2 Sat by Pulse Oximetry [ Bilateral Throughout] 07/12/21 07/12/21 07/12/21 06:37 06:42 06:47 Temperature Pulse Rate 108 H 111 H 118 H Respiratory Rate Blood Pressure Blood Pressure [Right] O2 Sat by Pulse 98 98 97 Oximetry O2 Sat by Pulse Oximetry [ Bilateral Throughout] 07/12/21 07/12/21 07/12/21 06:52 06:57 07:01 Temperature Pulse Rate 111 H 107 H 105 H Respiratory Rate Blood Pressure 139/81 Blood Pressure [Right] O2 Sat by Pulse 96 98 94 Oximetry O2 Sat by Pulse Oximetry [ Bilateral Throughout] 07/12/21 07/12/21 07/12/21 07:02 07:07 07:12 Temperature Pulse Rate 105 H 104 H 104 H Respiratory Rate Blood Pressure Blood Pressure [Right] O2 Sat by Pulse 95 95 94 Oximetry O2 Sat by Pulse Oximetry [ Bilateral Throughout] 07/12/21 07/12/21 07/12/21 07:17 07:22 07:26 Temperature Pulse Rate 101 H 111 H 108 H Respiratory Rate Blood Pressure Blood Pressure [Right] O2 Sat by Pulse 95 94 94 Oximetry O2 Sat by Pulse Oximetry [ Bilateral Throughout] 07/12/21 07/12/21 07/12/21 07:27 07:31 07:32 Temperature Pulse Rate 102 H 99 H 106 H Respiratory Rate Blood Pressure Blood Pressure [Right] O2 Sat by Pulse 97 93 95 Oximetry O2 Sat by Pulse Oximetry [ Bilateral Throughout] 07/12/21 07/12/21 07/12/21 07:36 07:37 07:42 Temperature Pulse Rate 100 H 100 H 100 H Respiratory Rate Blood Pressure Blood Pressure [Right] O2 Sat by Pulse 94 94 93 Oximetry O2 Sat by Pulse Oximetry [ Bilateral Throughout] 07/12/21 07/12/21 07/12/21 07:44 07:47 07:49 Temperature Pulse Rate 100 H 100 H 100 H Respiratory Rate Blood Pressure Blood Pressure [Right] O2 Sat by Pulse 94 93 94 Oximetry O2 Sat by Pulse Oximetry [ Bilateral Throughout] 07/12/21 07/12/21 07/12/21 07:52 07:57 08:02 Temperature Pulse Rate 113 H 107 H 106 H Respiratory Rate Blood Pressure 135/79 Blood Pressure [Right] O2 Sat by Pulse 98 96 95 Oximetry O2 Sat by Pulse Oximetry [ Bilateral Throughout] 07/12/21 07/12/21 07/12/21 08:07 08:12 08:17 Temperature Pulse Rate 112 H 117 H 122 H Respiratory Rate Blood Pressure Blood Pressure [Right] O2 Sat by Pulse 97 97 96 Oximetry O2 Sat by Pulse Oximetry [ Bilateral Throughout] 07/12/21 07/12/21 07/12/21 08:20 08:21 08:22 Temperature 98.0 F Pulse Rate 106 H 110 H 108 H Respiratory 22 Rate Blood Pressure 128/71 Blood Pressure 128/71 [Right] O2 Sat by Pulse 96 97 Oximetry O2 Sat by Pulse Oximetry [ Bilateral Throughout] 07/12/21 07/12/21 07/12/21 08:24 08:27 08:32 Temperature Pulse Rate 108 H 107 H Respiratory Rate Blood Pressure 131/72 Blood Pressure [Right] O2 Sat by Pulse 95 95 Oximetry O2 Sat by Pulse 96 Oximetry [ Bilateral Throughout] 07/12/21 07/12/2107/12/22 08:37 08:42 08:47 Temperature Pulse Rate 112 H 114 H 110 H Respiratory Rate Blood Pressure Blood Pressure [Right] O2 Sat by Pulse 97 97 97 Oximetry O2 Sat by Pulse Oximetry [ Bilateral Throughout] 07/12/21 07/12/21 07/12/21 08:52 08:57 08:58 Temperature Pulse Rate 106 H 104 H 105 H Respiratory Rate Blood Pressure 117/65 Blood Pressure [Right] O2 Sat by Pulse 96 96 Oximetry O2 Sat by Pulse Oximetry [ Bilateral Throughout] 07/12/21 07/12/21 07/12/21 09:02 09:07 09:12 Temperature Pulse Rate 120 H 120 H 110 H Respiratory Rate Blood Pressure Blood Pressure [Right] O2 Sat by Pulse 97 98 96 Oximetry O2 Sat by Pulse Oximetry [ Bilateral Throughout] 07/12/21 07/12/21 07/12/21 09:17 09:22 09:27 Temperature Pulse Rate 115 H 110 H 110 H Respiratory Rate Blood Pressure 126/65 Blood Pressure [Right] O2 Sat by Pulse 96 98 98 Oximetry O2 Sat by Pulse Oximetry [ Bilateral Throughout] 07/12/21 07/12/21 07/12/21 09:32 09:37 09:42 Temperature Pulse Rate 103 H 105 H 110 H Respiratory Rate Blood Pressure Blood Pressure [Right] O2 Sat by Pulse 97 98 98 Oximetry O2 Sat by Pulse Oximetry [ Bilateral Throughout] 07/12/21 07/12/21 07/12/21 09:47 09:52 09:57 Temperature Pulse Rate 103 H 108 H 103 H Respiratory Rate Blood Pressure Blood Pressure [Right] O2 Sat by Pulse 99 99 97 Oximetry O2 Sat by Pulse Oximetry [ Bilateral Throughout] 07/12/21 07/12/21 07/12/21 09:58 10:02 10:07 Temperature Pulse Rate 104 H 106 H 109 H Respiratory Rate Blood Pressure 127/66 149/82 Blood Pressure [Right] O2 Sat by Pulse 97 97 Oximetry O2 Sat by Pulse Oximetry [ Bilateral Throughout] 07/12/21 07/12/21 07/12/21 10:11 10:13 10:17 Temperature Pulse Rate 112 H 116 H 114 H Respiratory Rate Blood Pressure 149/82 Blood Pressure [Right] O2 Sat by Pulse 99 98 Oximetry O2 Sat by Pulse Oximetry [ Bilateral Throughout] 07/12/21 07/12/2107/12/22 10:23 10:27 10:28 Temperature Pulse Rate 106 H 106 H 109 H Respiratory Rate Blood Pressure 120/57 Blood Pressure [Right] O2 Sat by Pulse 97 98 Oximetry O2 Sat by Pulse Oximetry [ Bilateral Throughout] 07/12/21 07/12/21 07/12/21 10:32 10:38 10:40 Temperature Pulse Rate 109 H 104 H 104 H Respiratory Rate Blood Pressure Blood Pressure [Right] O2 Sat by Pulse 96 95 94 Oximetry O2 Sat by Pulse Oximetry [ Bilateral Throughout] 07/12/21 07/12/21 07/12/21 10:42 10:47 10:53 Temperature Pulse Rate 109 H 118 H 104 H Respiratory Rate Blood Pressure Blood Pressure [Right] O2 Sat by Pulse 95 97 97 Oximetry O2 Sat by Pulse Oximetry [ Bilateral Throughout] 07/12/21 07/12/21 07/12/21 10:57 11:00 11:03 Temperature Pulse Rate 106 H 108 H 108 H Respiratory Rate Blood Pressure 130/71 Blood Pressure [Right] O2 Sat by Pulse 95 94 95 Oximetry O2 Sat by Pulse Oximetry [ Bilateral Throughout] 07/12/21 07/12/21 07/12/21 11:06 11:07 11:13 Temperature Pulse Rate 104 H 110 H 103 H Respiratory Rate Blood Pressure Blood Pressure [Right] O2 Sat by Pulse 94 93 93 Oximetry O2 Sat by Pulse Oximetry [ Bilateral Throughout] 07/12/21 07/12/21 07/12/21 11:18 11:22 11:27 Temperature Pulse Rate 99 H 113 H 101 H Respiratory Rate Blood Pressure 115/56 Blood Pressure [Right] O2 Sat by Pulse 93 97 94 Oximetry O2 Sat by Pulse Oximetry [ Bilateral Throughout] 07/12/21 07/12/21 07/12/21 11:28 11:32 11:38 Temperature Pulse Rate 102 H 104 H 105 H Respiratory Rate Blood Pressure Blood Pressure [Right] O2 Sat by Pulse 94 94 92 Oximetry O2 Sat by Pulse Oximetry [ Bilateral Throughout] 07/12/21 07/12/21 07/12/21 11:41 11:43 11:48 Temperature Pulse Rate 101 H 100 H 98 H Respiratory Rate Blood Pressure Blood Pressure [Right] O2 Sat by Pulse 94 93 94 Oximetry O2 Sat by Pulse Oximetry [ Bilateral Throughout] 07/12/21 07/12/21 07/12/21 11:53 11:57 11:58 Temperature Pulse Rate 109 H 113 H 114 H Respiratory Rate Blood Pressure 132/73 Blood Pressure [Right] O2 Sat by Pulse 97 97 Oximetry O2 Sat by Pulse Oximetry [ Bilateral Throughout] 07/12/21 07/12/21 07/12/21 12:03 12:07 12:12 Temperature Pulse Rate 108 H 106 H 104 H Respiratory Rate Blood Pressure Blood Pressure [Right] O2 Sat by Pulse 94 94 94 Oximetry O2 Sat by Pulse Oximetry [ Bilateral Throughout] 07/12/21 07/12/21 07/12/21 12:13 12:18 12:23 Temperature Pulse Rate 103 H 104 H 105 H Respiratory Rate Blood Pressure Blood Pressure [Right] O2 Sat by Pulse 95 94 95 Oximetry O2 Sat by Pulse Oximetry [ Bilateral Throughout] 07/12/21 07/12/21 07/12/21 12:26 12:27 12:28 Temperature Pulse Rate 101 H 106 H 107 H Respiratory Rate Blood Pressure 115/59 Blood Pressure [Right] O2 Sat by Pulse 94 96 Oximetry O2 Sat by Pulse Oximetry [ Bilateral Throughout] 07/12/21 07/12/21 07/12/21 12:32 12:37 12:43 Temperature Pulse Rate 102 H 99 H 106 H Respiratory Rate Blood Pressure Blood Pressure [Right] O2 Sat by Pulse 97 96 96 Oximetry O2 Sat by Pulse Oximetry [ Bilateral Throughout] 07/12/21 07/12/21 07/12/21 12:48 12:52 12:57 Temperature Pulse Rate 103 H 98 H 102 H Respiratory Rate Blood Pressure Blood Pressure [Right] O2 Sat by Pulse 95 97 95 Oximetry O2 Sat by Pulse Oximetry [ Bilateral Throughout] 07/12/21 07/12/21 07/12/21 12:58 13:03 13:07 Temperature Pulse Rate 103 H 107 H 110 H Respiratory Rate Blood Pressure 113/52 Blood Pressure [Right] O2 Sat by Pulse 96 98 Oximetry O2 Sat by Pulse Oximetry [ Bilateral Throughout] 07/12/21 07/12/21 07/12/21 13:12 13:17 13:22 Temperature Pulse Rate 103 H 104 H 105 H Respiratory Rate Blood Pressure Blood Pressure [Right] O2 Sat by Pulse 97 97 97 Oximetry O2 Sat by Pulse Oximetry [ Bilateral Throughout] 07/12/21 07/12/21 07/12/21 13:27 13:28 13:32 Temperature Pulse Rate 111 H 108 H 110 H Respiratory Rate Blood Pressure 136/83 Blood Pressure [Right] O2 Sat by Pulse 98 97 Oximetry O2 Sat by Pulse Oximetry [ Bilateral Throughout] 07/12/21 07/12/21 07/12/21 13:37 13:43 13:47 Temperature Pulse Rate 111 H 110 H 105 H Respiratory Rate Blood Pressure Blood Pressure [Right] O2 Sat by Pulse 96 98 96 Oximetry O2 Sat by Pulse Oximetry [ Bilateral Throughout] 07/12/21 07/12/21 07/12/21 13:52 13:57 14:03 Temperature Pulse Rate 105 H 105 H 111 H Respiratory Rate Blood Pressure 123/67 Blood Pressure [Right] O2 Sat by Pulse 96 98 98 Oximetry O2 Sat by Pulse Oximetry [ Bilateral Throughout] - Exam Breasts: deferred Cardiovascular: Regular rate Lungs: Normal air movement Abdomen: Absent: tenderness, guarding Uterus: Absent: tenderness FHR: category 1 (for EGA ) Uterine Contraction Monitor Mode: Palpation (no contraction paplated . reports ) Extremities: edema (trace edema ) Deep Tendon Reflex Grade: Normal +2 - Labs Labs: Abnormal Labs 07/11/21 07/11/21 07/12/21 18:25 22:28 05:13 RDW 15.3 H Seg Neutrophils % 79.3 H Seg Neutrophils # 7.9 H POC Glucose 127 H Magnesium 3.50 H 07/12/21 07:26 RDW Seg Neutrophils % Seg Neutrophils # POC Glucose Magnesium 4.20 H Laboratory Results - last 24 hr 07/11/21 07/11/21 07/11/21 18:25 18:25 18:25 WBC 9.9 RBC 4.14 Hgb 11.9 Hct 36.5 MCV 88 MCH 29 MCHC 33 RDW 15.3 H Plt Count 313 Lymph % (Auto) 15.3 [place] % (Auto) 4.6 Eos % (Auto) 0.6 Baso % (Auto) 0.2 Lymph # (Auto) 1.5 [place] # (Auto) 0.5 Eos # (Auto) 0.1 Baso # (Auto) 0.0 Seg Neutrophils % 79.3 H Seg Neutrophils # 7.9 H Creatinine 0.6 Estimated GFR > 60 POC Glucose Uric Acid 4.1 Magnesium AST 35 ALT 10 Urine Color Urine Turbidity Urine pH Ur Specific [place] Urine Protein Urine Glucose (UA) Urine Ketones Urine Blood Urine Nitrite Ur Reducing Substances Urine Bilirubin Urine Ictotest Urine Urobilinogen Ur Leukocyte Esterase Urine WBC (Auto) Urine RBC (Auto) U Epithel Cells (Auto) Urine Mucus Blood Type O POSITIVE Antibody Screen Negative 07/11/21 07/12/21 07/12/21 22:28 05:13 07:26 WBC RBC Hgb Hct MCV MCH MCHC RDW Plt Count Lymph % (Auto) [place] % (Auto) Eos % (Auto) Baso % (Auto) Lymph # (Auto) [place] # (Auto) Eos # (Auto) Baso # (Auto) Seg Neutrophils % Seg Neutrophils # Creatinine Estimated GFR POC Glucose 127 H Uric Acid Magnesium 3.50 H 4.20 H AST ALT Urine Color Urine Turbidity Urine pH Ur Specific [place] Urine Protein Urine Glucose (UA) Urine Ketones Urine Blood Urine Nitrite Ur Reducing Substances Urine Bilirubin Urine Ictotest Urine Urobilinogen Ur Leukocyte Esterase Urine WBC (Auto) Urine RBC (Auto) U Epithel Cells (Auto) Urine Mucus Blood Type Antibody Screen 07/12/21 08:35 WBC RBC Hgb Hct MCV MCH MCHC RDW Plt Count Lymph % (Auto) [place] % (Auto) Eos % (Auto) Baso % (Auto) Lymph # (Auto) [place] # (Auto) Eos # (Auto) Baso # (Auto) Seg Neutrophils % Seg Neutrophils # Creatinine Estimated GFR POC Glucose Uric Acid Magnesium AST ALT Urine Color Straw Urine Turbidity Clear Urine pH 5.0 Ur Specific [place] 1.020 Urine Protein <15 mg/dl Urine Glucose (UA) Negative Urine Ketones Trace Urine Blood Trace Urine Nitrite Negative Ur Reducing Substances Not Reportable Urine Bilirubin Negative Urine Ictotest Not Reportable Urine Urobilinogen < 2.0 Ur Leukocyte Esterase Small Urine WBC (Auto) 3.0 Urine RBC (Auto) 28.0 U Epithel Cells (Auto) 1.0 Urine Mucus Few Blood Type Antibody Screen
--- NOTE | 2021-07-12 19:00 | Progress Note ---
Subjective Date of service: 07/12/21 Principal diagnosis: IV Access Interval history: Asked to place a IV access. # 18g IV placed Right forearm. Objective - Constitutional Vitals: Vital Signs - 12hr 07/12/21 07/12/21 07/12/21 07:01 07:02 07:07 Temperature Pulse Rate 105 H 105 H 104 H Respiratory Rate Blood Pressure Blood Pressure [Right] O2 Sat by Pulse 94 95 95 Oximetry O2 Sat by Pulse Oximetry [ Bilateral Throughout] 07/12/21 07/12/21 07/12/21 07:12 07:17 07:22 Temperature Pulse Rate 104 H 101 H 111 H Respiratory Rate Blood Pressure Blood Pressure [Right] O2 Sat by Pulse 94 95 94 Oximetry O2 Sat by Pulse Oximetry [ Bilateral Throughout] 07/12/21 07/12/21 07/12/21 07:26 07:27 07:31 Temperature Pulse Rate 108 H 102 H 99 H Respiratory Rate Blood Pressure Blood Pressure [Right] O2 Sat by Pulse 94 97 93 Oximetry O2 Sat by Pulse Oximetry [ Bilateral Throughout] 07/12/21 07/12/21 07/12/21 07:32 07:36 07:37 Temperature Pulse Rate 106 H 100 H 100 H Respiratory Rate Blood Pressure Blood Pressure [Right] O2 Sat by Pulse 95 94 94 Oximetry O2 Sat by Pulse Oximetry [ Bilateral Throughout] 07/12/21 07/12/21 07/12/21 07:42 07:44 07:47 Temperature Pulse Rate 100 H 100 H 100 H Respiratory Rate Blood Pressure Blood Pressure [Right] O2 Sat by Pulse 93 94 93 Oximetry O2 Sat by Pulse Oximetry [ Bilateral Throughout] 07/12/21 07/12/21 07/12/21 07:49 07:52 07:57 Temperature Pulse Rate 100 H 113 H 107 H Respiratory Rate Blood Pressure 135/79 Blood Pressure [Right] O2 Sat by Pulse 94 98 96 Oximetry O2 Sat by Pulse Oximetry [ Bilateral Throughout] 07/12/21 07/12/21 07/12/21 08:02 08:07 08:12 Temperature Pulse Rate 106 H 112 H 117 H Respiratory Rate Blood Pressure Blood Pressure [Right] O2 Sat by Pulse 95 97 97 Oximetry O2 Sat by Pulse Oximetry [ Bilateral Throughout] 07/12/21 07/12/21 07/12/21 08:17 08:20 08:21 Temperature 98.0 F Pulse Rate 122 H 106 H 110 H Respiratory 22 Rate Blood Pressure 128/71 Blood Pressure 128/71 [Right] O2 Sat by Pulse 96 96 Oximetry O2 Sat by Pulse Oximetry [ Bilateral Throughout] 07/12/21 07/12/21 07/12/21 08:22 08:24 08:27 Temperature Pulse Rate 108 H 108 H Respiratory Rate Blood Pressure 131/72 Blood Pressure [Right] O2 Sat by Pulse 97 95 Oximetry O2 Sat by Pulse 96 Oximetry [ Bilateral Throughout] 07/12/21 07/12/21 07/12/21 08:32 08:37 08:42 Temperature Pulse Rate 107 H 112 H 114 H Respiratory Rate Blood Pressure Blood Pressure [Right] O2 Sat by Pulse 95 97 97 Oximetry O2 Sat by Pulse Oximetry [ Bilateral Throughout] 07/12/21 07/12/21 07/12/21 08:47 08:52 08:57 Temperature Pulse Rate 110 H 106 H 104 H Respiratory Rate Blood Pressure Blood Pressure [Right] O2 Sat by Pulse 97 96 96 Oximetry O2 Sat by Pulse Oximetry [ Bilateral Throughout] 07/12/21 07/12/21 07/12/21 08:58 09:02 09:07 Temperature Pulse Rate 105 H 120 H 120 H Respiratory Rate Blood Pressure 117/65 Blood Pressure [Right] O2 Sat by Pulse 97 98 Oximetry O2 Sat by Pulse Oximetry [ Bilateral Throughout] 07/12/21 07/12/21 07/12/21 09:12 09:17 09:22 Temperature Pulse Rate 110 H 115 H 110 H Respiratory Rate Blood Pressure Blood Pressure [Right] O2 Sat by Pulse 96 96 98 Oximetry O2 Sat by Pulse Oximetry [ Bilateral Throughout] 07/12/21 07/12/21 07/12/21 09:27 09:32 09:37 Temperature Pulse Rate 110 H 103 H 105 H Respiratory Rate Blood Pressure 126/65 Blood Pressure [Right] O2 Sat by Pulse 98 97 98 Oximetry O2 Sat by Pulse Oximetry [ Bilateral Throughout] 07/12/21 07/12/21 07/12/21 09:42 09:47 09:52 Temperature Pulse Rate 110 H 103 H 108 H Respiratory Rate Blood Pressure Blood Pressure [Right] O2 Sat by Pulse 98 99 99 Oximetry O2 Sat by Pulse Oximetry [ Bilateral Throughout] 07/12/21 07/12/21 07/12/21 09:57 09:58 10:02 Temperature Pulse Rate 103 H 104 H 106 H Respiratory Rate Blood Pressure 127/66 Blood Pressure [Right] O2 Sat by Pulse 97 97 Oximetry O2 Sat by Pulse Oximetry [ Bilateral Throughout] 07/12/21 07/12/21 07/12/21 10:07 10:11 10:13 Temperature Pulse Rate 109 H 112 H 116 H Respiratory Rate Blood Pressure 149/82 149/82 Blood Pressure [Right] O2 Sat by Pulse 97 99 Oximetry O2 Sat by Pulse Oximetry [ Bilateral Throughout] 07/12/21 07/12/21 07/12/21 10:17 10:23 10:27 Temperature Pulse Rate 114 H 106 H 106 H Respiratory Rate Blood Pressure 120/57 Blood Pressure [Right] O2 Sat by Pulse 98 97 Oximetry O2 Sat by Pulse Oximetry [ Bilateral Throughout] 07/12/21 07/12/21 07/12/21 10:28 10:32 10:38 Temperature Pulse Rate 109 H 109 H 104 H Respiratory Rate Blood Pressure Blood Pressure [Right] O2 Sat by Pulse 98 96 95 Oximetry O2 Sat by Pulse Oximetry [ Bilateral Throughout] 07/12/21 07/12/21 07/12/21 10:40 10:42 10:47 Temperature Pulse Rate 104 H 109 H 118 H Respiratory Rate Blood Pressure Blood Pressure [Right] O2 Sat by Pulse 94 95 97 Oximetry O2 Sat by Pulse Oximetry [ Bilateral Throughout] 07/12/21 07/12/21 07/12/21 10:53 10:57 11:00 Temperature Pulse Rate 104 H 106 H 108 H Respiratory Rate Blood Pressure 130/71 Blood Pressure [Right] O2 Sat by Pulse 97 95 94 Oximetry O2 Sat by Pulse Oximetry [ Bilateral Throughout] 07/12/21 07/12/21 07/12/21 11:03 11:06 11:07 Temperature Pulse Rate 108 H 104 H 110 H Respiratory Rate Blood Pressure Blood Pressure [Right] O2 Sat by Pulse 95 94 93 Oximetry O2 Sat by Pulse Oximetry [ Bilateral Throughout] 07/12/21 07/12/21 07/12/21 11:13 11:18 11:22 Temperature Pulse Rate 103 H 99 H 113 H Respiratory Rate Blood Pressure Blood Pressure [Right] O2 Sat by Pulse 93 93 97 Oximetry O2 Sat by Pulse Oximetry [ Bilateral Throughout] 07/12/21 07/12/21 07/12/21 11:27 11:28 11:32 Temperature Pulse Rate 101 H 102 H 104 H Respiratory Rate Blood Pressure 115/56 Blood Pressure [Right] O2 Sat by Pulse 94 94 94 Oximetry O2 Sat by Pulse Oximetry [ Bilateral Throughout] 07/12/21 07/12/21 07/12/21 11:38 11:41 11:43 Temperature Pulse Rate 105 H 101 H 100 H Respiratory Rate Blood Pressure Blood Pressure [Right] O2 Sat by Pulse 92 94 93 Oximetry O2 Sat by Pulse Oximetry [ Bilateral Throughout] 07/12/21 07/12/21 07/12/21 11:48 11:53 11:57 Temperature Pulse Rate 98 H 109 H 113 H Respiratory Rate Blood Pressure Blood Pressure [Right] O2 Sat by Pulse 94 97 97 Oximetry O2 Sat by Pulse Oximetry [ Bilateral Throughout] 07/12/21 07/12/21 07/12/21 11:58 12:03 12:07 Temperature Pulse Rate 114 H 108 H 106 H Respiratory Rate Blood Pressure 132/73 Blood Pressure [Right] O2 Sat by Pulse 94 94 Oximetry O2 Sat by Pulse Oximetry [ Bilateral Throughout] 07/12/21 07/12/21 07/12/21 12:12 12:13 12:18 Temperature Pulse Rate 104 H 103 H 104 H Respiratory Rate Blood Pressure Blood Pressure [Right] O2 Sat by Pulse 94 95 94 Oximetry O2 Sat by Pulse Oximetry [ Bilateral Throughout] 07/12/21 07/12/21 07/12/21 12:23 12:26 12:27 Temperature Pulse Rate 105 H 101 H 106 H Respiratory Rate Blood Pressure 115/59 Blood Pressure [Right] O2 Sat by Pulse 95 94 Oximetry O2 Sat by Pulse Oximetry [ Bilateral Throughout] 07/12/21 07/12/21 07/12/21 12:28 12:32 12:37 Temperature Pulse Rate 107 H 102 H 99 H Respiratory Rate Blood Pressure Blood Pressure [Right] O2 Sat by Pulse 96 97 96 Oximetry O2 Sat by Pulse Oximetry [ Bilateral Throughout] 07/12/21 07/12/21 07/12/21 12:43 12:48 12:52 Temperature Pulse Rate 106 H 103 H 98 H Respiratory Rate Blood Pressure Blood Pressure [Right] O2 Sat by Pulse 96 95 97 Oximetry O2 Sat by Pulse Oximetry [ Bilateral Throughout] 07/12/21 07/12/21 07/12/21 12:57 12:58 13:03 Temperature Pulse Rate 102 H 103 H 107 H Respiratory Rate Blood Pressure 113/52 Blood Pressure [Right] O2 Sat by Pulse 95 96 Oximetry O2 Sat by Pulse Oximetry [ Bilateral Throughout] 07/12/21 07/12/21 07/12/21 13:07 13:12 13:17 Temperature Pulse Rate 110 H 103 H 104 H Respiratory Rate Blood Pressure Blood Pressure [Right] O2 Sat by Pulse 98 97 97 Oximetry O2 Sat by Pulse Oximetry [ Bilateral Throughout] 07/12/21 07/12/21 07/12/21 13:22 13:27 13:28 Temperature Pulse Rate 105 H 111 H 108 H Respiratory Rate Blood Pressure 136/83 Blood Pressure [Right] O2 Sat by Pulse 97 98 Oximetry O2 Sat by Pulse Oximetry [ Bilateral Throughout] 07/12/21 07/12/21 07/12/21 13:32 13:37 13:43 Temperature Pulse Rate 110 H 111 H 110 H Respiratory Rate Blood Pressure Blood Pressure [Right] O2 Sat by Pulse 97 96 98 Oximetry O2 Sat by Pulse Oximetry [ Bilateral Throughout] 07/12/21 07/12/21 07/12/21 13:47 13:52 13:57 Temperature Pulse Rate 105 H 105 H 105 H Respiratory Rate Blood Pressure 123/67 Blood Pressure [Right] O2 Sat by Pulse 96 96 98 Oximetry O2 Sat by Pulse Oximetry [ Bilateral Throughout] 07/12/21 07/12/21 07/12/21 14:03 14:08 14:12 Temperature Pulse Rate 111 H 105 H 108 H Respiratory Rate Blood Pressure Blood Pressure [Right] O2 Sat by Pulse 98 97 98 Oximetry O2 Sat by Pulse Oximetry [ Bilateral Throughout] 07/12/21 07/12/21 07/12/21 14:17 14:23 14:27 Temperature Pulse Rate 100 H 106 H 103 H Respiratory Rate Blood Pressure Blood Pressure [Right] O2 Sat by Pulse 98 96 96 Oximetry O2 Sat by Pulse Oximetry [ Bilateral Throughout] 07/12/21 07/12/21 07/12/21 14:28 14:33 14:37 Temperature Pulse Rate 99 H 101 H 99 H Respiratory Rate Blood Pressure 128/68 Blood Pressure [Right] O2 Sat by Pulse 96 97 Oximetry O2 Sat by Pulse Oximetry [ Bilateral Throughout] 07/12/21 07/12/21 07/12/21 14:42 14:47 14:52 Temperature Pulse Rate 105 H 102 H 106 H Respiratory Rate Blood Pressure Blood Pressure [Right] O2 Sat by Pulse 96 97 97 Oximetry O2 Sat by Pulse Oximetry [ Bilateral Throughout] 07/12/21 07/12/21 07/12/21 14:57 14:58 15:03 Temperature Pulse Rate 103 H 103 H 104 H Respiratory Rate Blood Pressure 129/69 Blood Pressure [Right] O2 Sat by Pulse 97 98 Oximetry O2 Sat by Pulse Oximetry [ Bilateral Throughout] 07/12/21 07/12/21 07/12/21 15:08 15:12 15:18 Temperature Pulse Rate 100 H 103 H 111 H Respiratory Rate Blood Pressure Blood Pressure [Right] O2 Sat by Pulse 97 97 97 Oximetry O2 Sat by Pulse Oximetry [ Bilateral Throughout] 07/12/21 07/12/21 07/12/21 15:22 15:27 15:28 Temperature Pulse Rate 109 H 105 H 100 H Respiratory Rate Blood Pressure 135/76 Blood Pressure [Right] O2 Sat by Pulse 96 98 Oximetry O2 Sat by Pulse Oximetry [ Bilateral Throughout] 07/12/21 07/12/21 07/12/21 15:32 15:37 15:41 Temperature Pulse Rate 102 H 104 H 103 H Respiratory Rate Blood Pressure Blood Pressure [Right] O2 Sat by Pulse 96 96 94 Oximetry O2 Sat by Pulse Oximetry [ Bilateral Throughout] 07/12/21 07/12/21 07/12/21 15:42 15:47 15:52 Temperature Pulse Rate 103 H 102 H 100 H Respiratory Rate Blood Pressure Blood Pressure [Right] O2 Sat by Pulse 95 96 94 Oximetry O2 Sat by Pulse Oximetry [ Bilateral Throughout] 07/12/21 07/12/21 07/12/21 15:53 15:57 15:58 Temperature Pulse Rate 100 H 97 H 97 H Respiratory Rate Blood Pressure 125/69 Blood Pressure [Right] O2 Sat by Pulse 94 96 Oximetry O2 Sat by Pulse Oximetry [ Bilateral Throughout] 07/12/21 07/12/21 07/12/21 16:02 16:07 16:13 Temperature Pulse Rate 100 H 106 H 102 H Respiratory Rate Blood Pressure Blood Pressure [Right] O2 Sat by Pulse 96 97 97 Oximetry O2 Sat by Pulse Oximetry [ Bilateral Throughout] 07/12/21 07/12/21 07/12/21 16:17 16:22 16:27 Temperature Pulse Rate 104 H 112 H 112 H Respiratory Rate Blood Pressure Blood Pressure [Right] O2 Sat by Pulse 98 97 97 Oximetry O2 Sat by Pulse Oximetry [ Bilateral Throughout] 07/12/21 07/12/21 07/12/21 16:28 16:33 16:37 Temperature Pulse Rate 111 H 113 H 100 H Respiratory Rate Blood Pressure 139/77 Blood Pressure [Right] O2 Sat by Pulse 96 98 Oximetry O2 Sat by Pulse Oximetry [ Bilateral Throughout] 07/12/21 07/12/21 07/12/21 16:43 16:47 16:52 Temperature Pulse Rate 104 H 109 H 109 H Respiratory Rate Blood Pressure Blood Pressure [Right] O2 Sat by Pulse 97 96 96 Oximetry O2 Sat by Pulse Oximetry [ Bilateral Throughout] 07/12/21 07/12/21 07/12/21 16:57 17:02 17:07 Temperature Pulse Rate 109 H 107 H 103 H Respiratory Rate Blood Pressure 133/72 Blood Pressure [Right] O2 Sat by Pulse 97 97 97 Oximetry O2 Sat by Pulse Oximetry [ Bilateral Throughout] 07/12/21 07/12/21 07/12/21 17:12 17:17 17:18 Temperature Pulse Rate 99 H 100 H 94 H Respiratory Rate Blood Pressure 113/55 Blood Pressure [Right] O2 Sat by Pulse 98 98 Oximetry O2 Sat by Pulse Oximetry [ Bilateral Throughout] 07/12/21 07/12/21 07/12/21 17:22 17:27 17:32 Temperature Pulse Rate 97 H 93 H 93 H Respiratory Rate Blood Pressure Blood Pressure [Right] O2 Sat by Pulse 98 98 98 Oximetry O2 Sat by Pulse Oximetry [ Bilateral Throughout] 07/12/21 07/12/21 07/12/21 17:37 17:42 17:47 Temperature Pulse Rate 93 H 93 H 103 H Respiratory Rate Blood Pressure Blood Pressure [Right] O2 Sat by Pulse 97 98 97 Oximetry O2 Sat by Pulse Oximetry [ Bilateral Throughout] 07/12/21 17:53 Temperature Pulse Rate 97 H Respiratory Rate Blood Pressure Blood Pressure [Right] O2 Sat by Pulse 98 Oximetry O2 Sat by Pulse Oximetry [ Bilateral Throughout] - Labs CBC & Chem 7: 07/11/21 18:25 07/11/21 18:25 Labs: Abnormal lab results 07/11/21 07/11/21 07/12/21 Range/Units 18:25 22:28 05:13 RDW 15.3 H (13.2-15.2) % Seg Neutrophils % 79.3 H (40.0-70.0) % Seg Neutrophils # 7.9 H (1.8-7.7) K/mm3 POC Glucose 127 H (70-105) mg/dL Magnesium 3.50 H (1.7-2.3) mg/dL 07/12/21 07/12/21 07/12/21 Range/Units 06:27 07:26 10:14 RDW (13.2-15.2) % Seg Neutrophils % (40.0-70.0) % Seg Neutrophils # (1.8-7.7) K/mm3 POC Glucose 181 H 138 H (70-105) mg/dL Magnesium 4.20 H (1.7-2.3) mg/dL 07/12/21 07/12/21 07/12/21 Range/Units 14:23 16:48 18:44 RDW (13.2-15.2) % Seg Neutrophils % (40.0-70.0) % Seg Neutrophils # (1.8-7.7) K/mm3 POC Glucose 130 H 135 H (70-105) mg/dL Magnesium 4.80 H (1.7-2.3) mg/dL
[2021-07-12] MEDS: BETAMET ACET/BETAMET NA PH 6 MG/ML INJ 5 ML MDV IM SCH (19:16)
--- NOTE | 2021-07-13 09:24 | Progress Note ---
Assessment and Plan - Patient Problems (1) induced hypertension Current Visit: Yes Status: Acute Plan to address problem: followup with [facility] for twice weekly monitoring patient will be scheduled for a at 37 weeks (2) Diabetes mellitus affecting Current Visit: Yes Status: Acute Subjective - Subjective Date of service: 07/13/21 Interval history: Patient is currently without complaints. 24 hr urine protein of 270mg. She has remained normotensive while on bedrest. The patient has completed 24hrs of magnesium and steroid therapy. Patient reports: movement normal, other (denies sxs of PreE), no new complaints, no loss of fluid, no vaginal bleeding, no contractions Objective - Vital Signs Vital Signs: Vital Signs - 12hr 07/12/21 07/12/21 07/12/21 21:28 21:33 21:38 Temperature Pulse Rate 93 H 97 H 98 H Blood Pressure 140/75 O2 Sat by Pulse 90 97 96 Oximetry O2 Sat by Pulse Oximetry [ Bilateral Throughout] 07/12/21 07/12/21 07/12/21 21:43 21:48 21:53 Temperature Pulse Rate 94 H 95 H 94 H Blood Pressure O2 Sat by Pulse 96 96 96 Oximetry O2 Sat by Pulse Oximetry [ Bilateral Throughout] 07/12/21 07/12/21 07/12/21 21:58 22:02 22:03 Temperature Pulse Rate 90 89 89 Blood Pressure 138/77 O2 Sat by Pulse 96 91 97 Oximetry O2 Sat by Pulse Oximetry [ Bilateral Throughout] 07/12/21 07/12/21 07/12/21 22:08 22:13 22:18 Temperature Pulse Rate 90 92 H 91 H Blood Pressure O2 Sat by Pulse 97 96 97 Oximetry O2 Sat by Pulse Oximetry [ Bilateral Throughout] 07/12/21 07/12/21 07/12/21 22:23 22:28 22:29 Temperature Pulse Rate 91 H 86 92 H Blood Pressure 140/72 O2 Sat by Pulse 97 93 Oximetry O2 Sat by Pulse Oximetry [ Bilateral Throughout] 07/12/21 07/12/21 07/12/21 22:33 22:38 22:43 Temperature Pulse Rate 96 H 99 H 96 H Blood Pressure O2 Sat by Pulse 96 97 97 Oximetry O2 Sat by Pulse Oximetry [ Bilateral Throughout] 07/12/21 07/12/21 07/12/21 22:48 22:53 22:58 Temperature Pulse Rate 91 H 93 H 95 H Blood Pressure O2 Sat by Pulse 96 97 96 Oximetry O2 Sat by Pulse Oximetry [ Bilateral Throughout] 07/12/21 07/12/21 07/12/21 23:03 23:08 23:13 Temperature Pulse Rate 100 H 103 H 95 H Blood Pressure O2 Sat by Pulse 96 97 96 Oximetry O2 Sat by Pulse Oximetry [ Bilateral Throughout] 07/12/21 07/12/21 07/12/21 23:18 23:23 23:28 Temperature Pulse Rate 97 H 97 H 94 H Blood Pressure 133/67 O2 Sat by Pulse 96 97 91 Oximetry O2 Sat by Pulse Oximetry [ Bilateral Throughout] 07/12/21 07/12/21 07/12/21 23:33 23:38 23:43 Temperature Pulse Rate 97 H 94 H 91 H Blood Pressure O2 Sat by Pulse 96 98 97 Oximetry O2 Sat by Pulse Oximetry [ Bilateral Throughout] 07/12/21 07/12/21 07/12/21 23:48 23:53 23:58 Temperature Pulse Rate 95 H 100 H 106 H Blood Pressure O2 Sat by Pulse 97 95 96 Oximetry O2 Sat by Pulse Oximetry [ Bilateral Throughout] 07/13/21 07/13/21 07/13/21 00:34 00:37 00:42 Temperature Pulse Rate 104 H 105 H 98 H Blood Pressure O2 Sat by Pulse 97 96 96 Oximetry O2 Sat by Pulse Oximetry [ Bilateral Throughout] 07/13/21 07/13/21 07/13/21 00:47 00:52 00:57 Temperature Pulse Rate 104 H 100 H 95 H Blood Pressure O2 Sat by Pulse 96 97 97 Oximetry O2 Sat by Pulse Oximetry [ Bilateral Throughout] 07/13/21 07/13/21 07/13/21 01:02 01:07 01:12 Temperature Pulse Rate 101 H 100 H 98 H Blood Pressure O2 Sat by Pulse 96 96 100 Oximetry O2 Sat by Pulse Oximetry [ Bilateral Throughout] 07/13/21 07/13/21 07/13/21 01:17 01:20 01:22 Temperature Pulse Rate 99 H 97 H 95 H Blood Pressure 129/67 O2 Sat by Pulse 97 97 Oximetry O2 Sat by Pulse Oximetry [ Bilateral Throughout] 07/13/21 07/13/21 07/13/21 01:27 01:32 01:37 Temperature Pulse Rate 96 H 94 H 94 H Blood Pressure O2 Sat by Pulse 97 96 96 Oximetry O2 Sat by Pulse Oximetry [ Bilateral Throughout] 07/13/21 07/13/21 07/13/21 01:42 01:47 01:52 Temperature Pulse Rate 94 H 89 97 H Blood Pressure O2 Sat by Pulse 96 97 96 Oximetry O2 Sat by Pulse Oximetry [ Bilateral Throughout] 07/13/21 07/13/21 07/13/21 01:57 02:02 02:07 Temperature Pulse Rate 92 H 94 H 93 H Blood Pressure O2 Sat by Pulse 96 97 96 Oximetry O2 Sat by Pulse Oximetry [ Bilateral Throughout] 07/13/21 07/13/21 07/13/21 02:12 02:17 02:22 Temperature Pulse Rate 89 90 89 Blood Pressure 125/67 O2 Sat by Pulse 96 96 97 Oximetry O2 Sat by Pulse Oximetry [ Bilateral Throughout] 07/13/21 07/13/21 07/13/21 02:27 02:32 02:37 Temperature Pulse Rate 90 93 H 92 H Blood Pressure O2 Sat by Pulse 96 96 96 Oximetry O2 Sat by Pulse Oximetry [ Bilateral Throughout] 07/13/21 07/13/21 07/13/21 02:42 02:47 02:52 Temperature Pulse Rate 90 89 95 H Blood Pressure O2 Sat by Pulse 97 96 97 Oximetry O2 Sat by Pulse Oximetry [ Bilateral Throughout] 07/13/21 07/13/21 07/13/21 02:57 03:02 03:07 Temperature Pulse Rate 88 90 90 Blood Pressure O2 Sat by Pulse 96 96 97 Oximetry O2 Sat by Pulse Oximetry [ Bilateral Throughout] 07/13/21 07/13/21 07/13/21 03:12 03:17 03:21 Temperature Pulse Rate 91 H 86 86 Blood Pressure 122/67 O2 Sat by Pulse 98 96 Oximetry O2 Sat by Pulse Oximetry [ Bilateral Throughout] 07/13/21 07/13/21 07/13/21 03:22 03:27 03:32 Temperature Pulse Rate 87 89 86 Blood Pressure O2 Sat by Pulse 97 97 97 Oximetry O2 Sat by Pulse Oximetry [ Bilateral Throughout] 07/13/21 07/13/21 07/13/21 03:37 03:42 03:47 Temperature Pulse Rate 90 92 H 85 Blood Pressure O2 Sat by Pulse 98 97 97 Oximetry O2 Sat by Pulse Oximetry [ Bilateral Throughout] 07/13/21 07/13/2107/13/22 03:49 03:52 03:55 Temperature Pulse Rate 93 H 88 85 Blood Pressure O2 Sat by Pulse 93 94 94 Oximetry O2 Sat by Pulse Oximetry [ Bilateral Throughout] 07/13/21 07/13/21 07/13/21 03:57 04:02 04:07 Temperature Pulse Rate 83 88 89 Blood Pressure O2 Sat by Pulse 97 96 96 Oximetry O2 Sat by Pulse Oximetry [ Bilateral Throughout] 07/13/21 07/13/21 07/13/21 04:12 04:14 04:17 Temperature Pulse Rate 92 H 83 84 Blood Pressure O2 Sat by Pulse 97 93 97 Oximetry O2 Sat by Pulse Oximetry [ Bilateral Throughout] 07/13/21 07/13/21 07/13/21 04:21 04:22 04:26 Temperature Pulse Rate 90 88 90 Blood Pressure 128/58 O2 Sat by Pulse 92 96 94 Oximetry O2 Sat by Pulse Oximetry [ Bilateral Throughout] 07/13/21 07/13/21 07/13/21 04:27 04:32 04:37 Temperature Pulse Rate 87 92 H 90 Blood Pressure O2 Sat by Pulse 95 96 95 Oximetry O2 Sat by Pulse Oximetry [ Bilateral Throughout] 07/13/21 07/13/21 07/13/21 04:39 04:42 04:47 Temperature Pulse Rate 89 89 87 Blood Pressure O2 Sat by Pulse 94 95 95 Oximetry O2 Sat by Pulse Oximetry [ Bilateral Throughout] 07/13/21 07/13/21 07/13/21 04:52 04:56 04:57 Temperature Pulse Rate 88 84 86 Blood Pressure O2 Sat by Pulse 95 94 95 Oximetry O2 Sat by Pulse Oximetry [ Bilateral Throughout] 07/13/21 07/13/21 07/13/21 05:02 05:07 05:12 Temperature Pulse Rate 86 86 88 Blood Pressure O2 Sat by Pulse 95 95 95 Oximetry O2 Sat by Pulse Oximetry [ Bilateral Throughout] 07/13/21 07/13/21 07/13/21 05:17 05:21 05:22 Temperature Pulse Rate 87 88 85 Blood Pressure 115/64 O2 Sat by Pulse 95 92 96 Oximetry O2 Sat by Pulse Oximetry [ Bilateral Throughout] 07/13/21 07/13/21 07/13/21 05:27 05:32 05:37 Temperature Pulse Rate 84 89 84 Blood Pressure O2 Sat by Pulse 96 96 96 Oximetry O2 Sat by Pulse Oximetry [ Bilateral Throughout] 07/13/21 07/13/21 07/13/21 05:42 05:47 05:52 Temperature Pulse Rate 78 91 H 85 Blood Pressure O2 Sat by Pulse 95 97 96 Oximetry O2 Sat by Pulse Oximetry [ Bilateral Throughout] 07/13/21 07/13/21 07/13/21 05:57 06:02 06:07 Temperature Pulse Rate 90 86 91 H Blood Pressure O2 Sat by Pulse 96 96 96 Oximetry O2 Sat by Pulse Oximetry [ Bilateral Throughout] 07/13/21 07/13/21 07/13/21 06:12 06:17 06:19 Temperature Pulse Rate 90 95 H 92 H Blood Pressure O2 Sat by Pulse 95 95 94 Oximetry O2 Sat by Pulse Oximetry [ Bilateral Throughout] 07/13/21 07/13/21 07/13/21 06:21 06:22 06:37 Temperature Pulse Rate 85 88 87 Blood Pressure 132/72 O2 Sat by Pulse 97 98 Oximetry O2 Sat by Pulse Oximetry [ Bilateral Throughout] 07/13/21 07/13/21 07/13/21 06:42 06:47 06:49 Temperature Pulse Rate 89 94 H 96 H Blood Pressure O2 Sat by Pulse 97 99 94 Oximetry O2 Sat by Pulse Oximetry [ Bilateral Throughout] 07/13/21 07/13/21 07/13/21 06:52 06:56 06:57 Temperature Pulse Rate 93 H 94 H 89 Blood Pressure O2 Sat by Pulse 96 93 93 Oximetry O2 Sat by Pulse Oximetry [ Bilateral Throughout] 07/13/21 07/13/21 07/13/21 07:01 07:02 07:04 Temperature Pulse Rate 89 92 H 87 Blood Pressure 140/83 O2 Sat by Pulse 94 94 Oximetry O2 Sat by Pulse Oximetry [ Bilateral Throughout] 07/13/21 07/13/21 07/13/21 07:07 07:12 07:17 Temperature Pulse Rate 86 86 82 Blood Pressure O2 Sat by Pulse 97 95 96 Oximetry O2 Sat by Pulse Oximetry [ Bilateral Throughout] 07/13/21 07/13/21 07/13/21 07:19 07:20 07:21 Temperature 98.2 F Pulse Rate 91 H 85 Blood Pressure 139/81 O2 Sat by Pulse 94 Oximetry O2 Sat by Pulse 95 Oximetry [ Bilateral Throughout] 07/13/21 07/13/21 07/13/21 07:22 07:27 07:29 Temperature Pulse Rate 83 92 H 84 Blood Pressure O2 Sat by Pulse 97 96 89 Oximetry O2 Sat by Pulse Oximetry [ Bilateral Throughout] 07/13/21 07/13/21 07/13/21 07:32 07:37 07:42 Temperature Pulse Rate 87 86 87 Blood Pressure O2 Sat by Pulse 96 97 97 Oximetry O2 Sat by Pulse Oximetry [ Bilateral Throughout] 07/13/21 07/13/21 07/13/21 07:47 07:52 07:57 Temperature Pulse Rate 82 85 80 Blood Pressure O2 Sat by Pulse 97 96 96 Oximetry O2 Sat by Pulse Oximetry [ Bilateral Throughout] 07/13/21 07/13/21 07/13/21 08:02 08:07 08:12 Temperature Pulse Rate 81 82 80 Blood Pressure O2 Sat by Pulse 97 97 98 Oximetry O2 Sat by Pulse Oximetry [ Bilateral Throughout] 07/13/21 07/13/21 07/13/21 08:17 08:21 08:22 Temperature Pulse Rate 82 86 80 Blood Pressure 136/77 O2 Sat by Pulse 98 97 Oximetry O2 Sat by Pulse Oximetry [ Bilateral Throughout] 07/13/21 07/13/21 07/13/21 08:27 08:32 08:37 Temperature Pulse Rate 87 83 87 Blood Pressure O2 Sat by Pulse 96 94 97 Oximetry O2 Sat by Pulse Oximetry [ Bilateral Throughout] 07/13/21 07/13/21 07/13/21 08:42 08:44 08:47 Temperature Pulse Rate 87 85 90 Blood Pressure O2 Sat by Pulse 98 94 99 Oximetry O2 Sat by Pulse Oximetry [ Bilateral Throughout] 07/13/21 07/13/21 07/13/21 08:52 08:57 09:02 Temperature Pulse Rate 85 83 81 Blood Pressure O2 Sat by Pulse 99 98 98 Oximetry O2 Sat by Pulse Oximetry [ Bilateral Throughout] 07/13/21 07/13/21 07/13/21 09:07 09:12 09:17 Temperature Pulse Rate 82 85 91 H Blood Pressure O2 Sat by Pulse 99 98 99 Oximetry O2 Sat by Pulse Oximetry [ Bilateral Throughout] 07/13/21 09:18 Temperature Pulse Rate 80 Blood Pressure O2 Sat by Pulse 90 Oximetry O2 Sat by Pulse Oximetry [ Bilateral Throughout] - Labs Labs: Abnormal Labs 07/11/21 07/11/21 07/11/21 18:25 19:30 22:28 RDW 15.3 H Seg Neutrophils % 79.3 H Seg Neutrophils # 7.9 H POC Glucose 127 H Magnesium Ur Total Protein 24 Hr 270.00 H Urine Total Protein 12 H 07/12/21 07/12/21 07/12/21 05:13 06:27 07:26 RDW Seg Neutrophils % Seg Neutrophils # POC Glucose 181 H Magnesium 3.50 H 4.20 H Ur Total Protein 24 Hr Urine Total Protein 07/12/21 07/12/21 07/12/21 10:14 14:23 16:48 RDW Seg Neutrophils % Seg Neutrophils # POC Glucose 138 H 130 H Magnesium 4.80 H Ur Total Protein 24 Hr Urine Total Protein 07/12/21 07/13/21 18:44 07:28 RDW Seg Neutrophils % Seg Neutrophils # POC Glucose 135 H Magnesium 3.30 H Ur Total Protein 24 Hr Urine Total Protein Laboratory Results - last 24 hr 07/11/21 07/11/21 07/12/21 17:46 19:30 06:27 POC Glucose 70 181 H Magnesium Urine Color Urine Turbidity Urine pH Ur Specific [place] Urine Protein Urine Glucose (UA) Urine Ketones Urine Blood Urine Nitrite Ur Reducing Substances Urine Bilirubin Urine Ictotest Urine Urobilinogen Ur Leukocyte Esterase Urine WBC (Auto) Urine Mucus Urine Total Volume 2250 Ur Total Protein 24 Hr 270.00 H Urine Total Protein 12 H 07/12/21 07/12/21 07/12/21 08:35 10:14 14:23 POC Glucose 138 H 130 H Magnesium Urine Color Straw Urine Turbidity Clear Urine pH 5.0 Ur Specific [place] 1.020 Urine Protein <15 mg/dl Urine Glucose (UA) Negative Urine Ketones Trace Urine Blood Trace Urine Nitrite Negative Ur Reducing Substances Not Reportable Urine Bilirubin Negative Urine Ictotest Not Reportable Urine Urobilinogen < 2.0 Ur Leukocyte Esterase Small Urine WBC (Auto) 3.0 Urine Mucus Few Urine Total Volume Ur Total Protein 24 Hr Urine Total Protein 07/12/21 07/12/21 07/13/21 16:48 18:44 07:28 POC Glucose 135 H Magnesium 4.80 H 3.30 H Urine Color Urine Turbidity Urine pH Ur Specific [place] Urine Protein Urine Glucose (UA) Urine Ketones Urine Blood Urine Nitrite Ur Reducing Substances Urine Bilirubin Urine Ictotest Urine Urobilinogen Ur Leukocyte Esterase Urine WBC (Auto) Urine Mucus Urine Total Volume Ur Total Protein 24 Hr Urine Total Protein
[2021-07-13] MEDS: PRENATAL VIT27-FE FUMARATE-FOLIC ACID VIT TAB PO SCH (10:58)
[2021-07-13] MEDS: valACYclovir 500 MG TAB PO SCH (10:59)
[2021-07-13 12:22] VITALS: BP 123/66
--- NOTE | 2021-07-13 13:59 | Discharge Summary ---
Providers - Providers Date of Admission: 07/11/21 14:14 Date of discharge: 07/13/21 Attending physician: CLAUDIA LAYNE 07/11/21 17:08 Consult to Dietitian/Nutrition [CONS] Routine Physician Instructions: Reason For Exam: Reason for Consult: Diabetic teaching Primary care physician: [facility] Hospitalization Reason for admission: other (PIH/DM) Discharge diagnosis: other (PIH?DM) Hospital course: Patient admitted for observation and evaluation for preeclampsia and DM. The patient received 24hrs of magnesium and steroid therapy. 24hr urine protein was 270mg. Patient remained normotensive on bedrest. Condition at discharge: Good Disposition: 01 HOME / SELF CARE / HOMELESS - Discharge Diagnoses (1) induced hypertension Status: Acute (2) Diabetes mellitus affecting Status: Acute Plan - Provider Discharge Summary Activity: other (modified bedrest) Diet: other (DM controlled) Additional instructions: [] Smoking cessation referral if applicable(refer to patient education folder for contact #) [] Refer to [facility] Booklet Call your doctor immediately for: * Fever > 100.5 * Heavy vaginal bleeding ( >1 pad per hour) * Severe persistent headache * Shortness of breath * Reddened, hot, painful area to leg or breast * Drainage or odor from incision. * Keep incision clean and dry at all times and follow doctor's instructions regarding bathing/showering - Follow up plan Forms: [facility] Discharge Summary
== END 2021-07-13 14:03 | disposition home or self-care (01) | DRG 781 ==
LOC: LD 14:14
PROVIDERS: ADMIT Obstetrics & Gynecology; ATTEND Obstetrics & Gynecology
DX: O13.3 Gestational [pregnancy-induced] hypertension without significant proteinuria, third trimester (principal); O24.419 Gestational diabetes mellitus in pregnancy, unspecified control; O34.211 Maternal care for low transverse scar from previous cesarean delivery; Z3A.35 35 weeks gestation of pregnancy; A60.00 Herpesviral infection of urogenital system, unspecified; A59.9 Trichomoniasis, unspecified; O99.213 Obesity complicating pregnancy, third trimester; E66.01 Morbid (severe) obesity due to excess calories
CPT/HCPCS: 36415; 81001; 82565; 82962; 83036; 83735; 84156; 84450; 84460; 84550; 85025; 86850; 86900; 86901; G0378; Q9967; J0360; J0702; J1815; J3475; J7120